=== PATIENT | female | born 1965 | race Caucasian/White ===

== ENCOUNTER 2016-10-19 15:24 | Emergency (ER) | payer BC ==
[2016-10-19 15:43] LABS: Hematocrit 43 % (35-47); Hemoglobin 14.2 g/dl (12.0-16.0); Mean Corpuscular HGB Conc 33 g/dl (31-36); Mean Corpuscular Hemoglobin 28 pg (27-31); Mean Corpuscular Volume 86 fL (80-97); Mean Platelet Volume 8 um3 (7.4-10.4); Red Blood Count 5.07 10^6/ul (4.0-5.4); Red Cell Distribution Width 14 % (10.5-15); White Blood Count 14.1 10^3/ul (3.5-10.8)
[2016-10-19 15:45] LABS: Add Diff/Slide Review? Slide Review Added; Comments Flag Yes
--- NOTE | 2016-10-19 15:49 | RAD ---
INDICATION: Neurologic changes, code garcía. COMPARISON: Comparison is made with a prior MRI of the brain from July 03, [address] of the brain from May 30, 2009. TECHNIQUE: Contiguous axial sections of the brain were obtained from the skull base to the vertex without contrast. FINDINGS: The ventricles, cisterns and sulci are within normal limits. No significant focal abnormality or mass effect is seen. There is no evidence for hemorrhage. No significant focal osseous abnormality is seen. The visualized portion of the paranasal sinuses and mastoid air cells appear clear. The results of this exam were called to the referring clinician at 1544 hours. IMPRESSION: NO EVIDENCE FOR GROSS ACUTE INFARCT, MASS EFFECT OR HEMORRHAGE.
[2016-10-19 15:55] LABS: Albumin 4.6 g/dL (3.2-5.2); Calcium 10.1 mg/dL (8.6-10.3); EGFR African American 83.4 (>60); EGFR Non-African American 64.9 (>60); HDL Cholesterol 39.7 mg/dL; Total Bilirubin 0.3 mg/dL (0.2-1.0); Total Protein 7.6 g/dL (6.4-8.9)
--- NOTE | 2016-10-19 16:12 | RAD ---
INDICATION: Unresponsive. COMPARISON: Comparison is made with a prior chest x-ray study from January 10, 2016. TECHNIQUE: A portable view of the chest was obtained. FINDINGS: Cardiac and mediastinal contours appear to be within normal limits. The lungs are underinflated and clear. No pleural effusion is seen. IMPRESSION: NO EVIDENCE FOR ACUTE FINDING.
[2016-10-19 16:15] LABS: Eosinophils % 1 % (0-6); Neutrophil % 45 % (38-83); RBC Morphology Normal (Normal); Reactive Lymph % 18 % (0-6)
[2016-10-19 16:16] LABS: Add Path Review? YES
[2016-10-19 16:34] LABS: Mono Internal Control QC Line Present
[2016-10-19 16:53] LABS: C Reactive Protein 3.3 mg/L (< 5.00)
[2016-10-19 17:02] LABS: TSH (Thyroid Stimulating Horm) 1.86 mcIU/mL (0.34-5.60)
[2016-10-19 17:17] LABS: Erythrocyte Sed Rate 24 mm/Hr (0-14)
[2016-10-19 18:29] LABS: Benzodiazepine Urine Screen None Detected (None Detect)
[2016-10-19 18:30] LABS: Urine Bilirubin Negative (Negative); Urine Glucose Negative (Negative); Urine Nitrite Negative (Negative)
[2016-10-19 18:37] VITALS: BP 197/119
--- NOTE | 2016-10-19 22:09 | ED ---
Maddy Almanza Matthew, scribed for Juan Miguel Cartwright MD on 10/19/16 at 1604 . Neurological HPI - HPI Summary HPI Summary: A 51 y/o female presents to the ED with AMS since 15:30. Per the son, the administration manager at [facility] stated that patient was having left sided weakness and speech difficulties. They carried the patient into the back room, where she began talking, but still was unable to ambulated. Associated symptoms include headache. The patient denies pain. Currently, the patient will only answer yes or no questions. She is unable to move all extremities. - History of Current Complaint Stated Complaint: POSSIBLE STROKE Hx Obtained From: Patient, Family/Manager Clinical Applications - Son Onset/Duration: Sudden Onset, Started hours ago, Still Present Timing: Constant Onset Severity: Moderate Current Severity: Moderate Neurological Deficit Location: Generalized Character: Paralysis Aggravating: Nothing Alleviating: Nothing Associated Signs and Symptoms: Positive: Headache, AMS - Allergy/Home Medications Allergies/Adverse Reactions: Allergies Allergy/AdvReac Type Severity Reaction Status Date / Time Latex Allergy Blisters Verified 10/19/16 15:55 Aspirin AdvReac Unknown Nausea Verified 10/19/16 15:55 Home Medications: Home Medications Ezetimibe TAB* [Zetia TAB*] 10 mg PO DAILY 10/19/16 [History Confirmed 10/19/16] Nabumetone TAB* [Relafen TAB*] 750 mg PO BID 10/19/16 [History Confirmed ] metFORMIN* [Glucophage 500 MG TAB *] 500 mg PO BID 10/19/16 [History Confirmed 10/19/16] PMH/Surg Hx/FS Hx/Imm Hx Endocrine/Hematology History: Reports: Hx Diabetes - UNMED SINCE 2013 Cardiovascular History: Reports: Hx Hypercholesterolemia Denies: Hx Congestive Heart Failure, Hx Hypertension, Hx Pacemaker/ICD History: Denies: Hx Renal Disease Sensory History: Reports: Hx Contacts or Glasses Denies: Hx Hearing Aid Opthamlomology History: Reports: Hx Contacts or Glasses Neurological History: Reports: Hx Headaches, Hx Migraine - hemiplegic migraines. none in past year Psychiatric History: Reports: Hx Anxiety Denies: Hx Panic Disorder - Cancer History Hx Chemotherapy: No Hx Radiation Therapy: No - Surgical History Surgery Procedure, Year, and Place: X1 (22 YRS AGO). ESOPHAGEAL TIGHTENING VIA SCOPE FOR REFLUX. CERVICAL ABLATION. GIA FUNDOPLICATION. LEFT ARM ORIF Infectious Disease History: No Infectious Disease History: Denies: Traveled Outside the [place] in Last 30 Days - Family History Family History: FHx of breast CA - aunt and grandmother - Social History Alcohol Use: Occasionally Substance Use Type: Reports: None Smoking Status (MU): Current Some Day Smoker Review of Systems Constitutional: Negative Eyes: Negative ENT: Negative Cardiovascular: Negative Respiratory: Negative Gastrointestinal: Negative Genitourinary: Negative Musculoskeletal: Negative Skin: Negative Neurological: Other - AMS; Unable to move upper and lower extremity Positive: Headache Psychological: Normal All Other Systems Reviewed And Are Negative: Yes Physical Exam Triage Information Reviewed: Yes Vital Signs On Initial Exam: Initial Vitals Pulse Ox 91 10/19/16 15:36 Temp Pulse Resp BP Pulse Ox 99.2 F 115 17 189/104 92 10/19/16 15:51 10/19/16 16:10 10/19/16 16:10 10/19/16 16:10 10/19/16 16:10 Vital Signs Reviewed: Yes Appearance: Positive: No Pain Distress Skin: Positive: Warm, Dry Head/Face: Positive: Normal Head/Face Inspection Eyes: Positive: Normal ENT: Positive: Normal ENT inspection Neck: Positive: Supple, Nontender Respiratory/Lung Sounds: Positive: Clear to Auscultation, Breath Sounds Present Cardiovascular: Positive: RRR Abdomen Description: Positive: Nontender, Soft Bowel Sounds: Positive: Present Neurological: Positive: Other - The patient appears unable to move anything including her arms or her legs. She is awake but prefers to keep her eyes shut. She will answer yes or no questions. Diagnostics - Vital Signs Vital Signs Temp Pulse Resp BP Pulse Ox 10/19/16 15:51 99.2 F 106 19 170/93 92 10/19/16 15:46 99.2 F 108 20 189/117 93 10/19/16 15:36 91 - Laboratory Lab Results: Lab Results 10/19/16 10/19/16 10/19/16 Range/Units 15:30 15:30 15:30 WBC 14.1 H (3.5-10.8) 10^3/ul RBC 5.07 (4.0-5.4) 10^6/ul Hgb 14.2 (12.0-16.0) g/dl Hct 43 (35-47) % MCV 86 (80-97) fL MCH 28 (27-31) pg MCHC 33 (31-36) g/dl RDW 14 (10.5-15) % Plt Count 333 (150-450) 10^3/ul MPV 8 (7.4-10.4) um3 Neut % (Auto) 46.0 (38-83) % Lymph % (Auto) 45.6 (25-47) % [place] % (Auto) 6.5 (1-9) % Eos % (Auto) 0.8 (0-6) % Baso % (Auto) 1.1 (0-2) % Absolute Neuts (auto) 6.5 (1.5-7.7) 10^3/ul Absolute Lymphs (auto) 6.4 H (1.0-4.8) 10^3/ul Absolute Monos (auto) 0.9 H (0-0.8) 10^3/ul Absolute Eos (auto) 0.1 (0-0.6) 10^3/ul Absolute Basos (auto) 0.2 (0-0.2) 10^3/ul Absolute Nucleated RBC 0.01 10^3/ul Nucleated RBC % 0.1 INR (Anticoag Therapy) 0.89 (0.89-1.11) APTT 30.3 (26.0-36.3) seconds Sodium 137 (133-145) mmol/L Potassium 4.0 (3.5-5.0) mmol/L Chloride 105 (101-111) mmol/L Carbon Dioxide 23 (22-32) mmol/L Anion Gap 9 (2-11) mmol/L BUN 23 (6-24) mg/dL Creatinine 0.92 (0.51-0.95) mg/dL Est GFR ( Amer) 83.4 (>60) Est GFR (Non-Af Amer) 64.9 (>60) BUN/Creatinine Ratio 25.0 H (8-20) Glucose 112 H (70-100) mg/dL POC Glucose (mg/dL) (74-106) mg/dL Lactic Acid (0.5-2.0) mmol/L Calcium 10.1 (8.6-10.3) mg/dL Total Bilirubin 0.30 (0.2-1.0) mg/dL AST 21 (13-39) U/L ALT 23 (7-52) U/L Alkaline Phosphatase 51 (34-104) U/L Troponin I 0.00 (<0.04) ng/mL Total Protein 7.6 (6.4-8.9) g/dL Albumin 4.6 (3.2-5.2) g/dL Globulin 3.0 (2-4) g/dL Albumin/Globulin Ratio 1.5 (1-3) Triglycerides 328 mg/dL Cholesterol 211 mg/dL LDL Cholesterol 106 mg/dL HDL Cholesterol 39.7 mg/dL Blood Type Antibody Screen 10/19/16 10/19/16 10/19/16 Range/Units 15:30 15:30 15:32 WBC (3.5-10.8) 10^3/ul RBC (4.0-5.4) 10^6/ul Hgb (12.0-16.0) g/dl Hct (35-47) % MCV (80-97) fL MCH (27-31) pg MCHC (31-36) g/dl RDW (10.5-15) % Plt Count (150-450) 10^3/ul MPV (7.4-10.4) um3 Neut % (Auto) (38-83) % Lymph % (Auto) (25-47) % Mohave % (Auto) (1-9) % Eos % (Auto) (0-6) % Baso % (Auto) (0-2) % Absolute Neuts (auto) (1.5-7.7) 10^3/ul Absolute Lymphs (auto) (1.0-4.8) 10^3/ul Absolute Monos (auto) (0-0.8) 10^3/ul Absolute Eos (auto) (0-0.6) 10^3/ul Absolute Basos (auto) (0-0.2) 10^3/ul Absolute Nucleated RBC 10^3/ul Nucleated RBC % INR (Anticoag Therapy) (0.89-1.11) APTT (26.0-36.3) seconds Sodium (133-145) mmol/L Potassium (3.5-5.0) mmol/L Chloride (101-111) mmol/L Carbon Dioxide (22-32) mmol/L Anion Gap (2-11) mmol/L BUN (6-24) mg/dL Creatinine (0.51-0.95) mg/dL Est GFR ( Amer) (>60) Est GFR (Non-Af Amer) (>60) BUN/Creatinine Ratio (8-20) Glucose (70-100) mg/dL POC Glucose (mg/dL) 94 (74-106) mg/dL Lactic Acid 1.0 (0.5-2.0) mmol/L Calcium (8.6-10.3) mg/dL Total Bilirubin (0.2-1.0) mg/dL AST (13-39) U/L ALT (7-52) U/L Alkaline Phosphatase (34-104) U/L Troponin I (<0.04) ng/mL Total Protein (6.4-8.9) g/dL Albumin (3.2-5.2) g/dL Globulin (2-4) g/dL Albumin/Globulin Ratio (1-3) Triglycerides mg/dL Cholesterol mg/dL LDL Cholesterol mg/dL HDL Cholesterol mg/dL Blood Type O Positive Antibody Screen Pending Result Diagrams: 10/19/16 15:30 10/19/16 15:30 Lab Statement: Any lab studies that have been ordered have been reviewed, and results considered in the medical decision making process. - Radiology CXR Xray Interpretation: No Acute Changes - IMPRESSION: NO EVIDENCE FOR ACUTE FINDING. Radiology Interpretation Completed By: Radiologist - CT Brain CT CT Interpretation: No Acute Changes - IMPRESSION: NO EVIDENCE FOR GROSS ACUTE INFARCT, MASS EFFECT OR HEMORRHAGE. CT Interpretation Completed By: Radiologist - EKG 15:27 Cardiac Rate: Tachycardia - 109 bpm EKG Rhythm: Sinus Tachycardia EKG Interpretation: No STEMI Course/Dx - Course Course Of Treatment: Ms. Lopez presented very dramatically with inability to move anything but speaking slowly and answering yes or no questions by vocalizing. A code Lao was called and her W/U was normal. I asked Dr. Pereira to see her and she gradually improved while he was evaluating her. He recommended outpatient F/U. - Diagnoses Provider Diagnoses: Unresponsive episode - Physician Notifications Discussed Care of Patient With: Dr. Pereira (Neurology) at 16:34 -- Notified of patient's history and will consult on the patinet. Discharge - Discharge Plan Condition: Stable Disposition: HOME Referrals: Josh Pereira MD [Medical Doctor] - 1 Week Additional Instructions: Please follow-up with Dr. Pereira next week. The documentation as recorded by the Maddy bai Matthew accurately reflects the service I personally performed and the decisions made by me, Juan Miguel Cartwright MD.
--- NOTE | 2016-10-20 04:34 | CONS ---
CONSULTATION REPORT: DATE OF CONSULT: 10/19/16 - EMERGENCY DEPT PATIENT OF: Dr. Cartwright. HISTORY: This is a 51-year-old right-handed woman, who I was asked to come in to the ER today to evaluate for a number of problems. She was at work this afternoon when she developed complete paralysis of both arms and she was brought in to the ER. She would just be whispering and could not move any of her body. She had a negative CT scan at that point. She then went on to have an abnormal episode, where she was smacking her lips and her head was turning to one side. Dr. Cartwright's description of that is not currently in the chart, apparently it lasted a few minutes and then resolved. Further clinical course is described below under physical exam. PAST MEDICAL HISTORY: She has had a past history significant for, where her says, ever since they were , beginning the day after the wedding , she has had similar episodes of paralysis and possibly abnormal movements that occurred 2 to 3 times a week. The one today occurred was no different than usual other than it occurred while she was at work, so work sent her in. She has had a workup by a neurologist in [place] including MRI scans, CAT scans , EMGs, and apparently this has been normal. Her history goes back even further, she says, perhaps 15 years, but other details she could not describe, but her symptoms were past prior to her marriage. Of note, she also gets muscle spasms. She has diabetes as well. PAST SURGICAL HISTORY: She says past surgeries have included surgery of a broken arm and a . MEDICATIONS: She is on: 1. Metformin 500 b.i.d. 2. Relafen 750 mg b.i.d. 3. Zetia for cholesterol 10 mg daily. 4. Calcium carbonate/vitamin D 1 tab daily. 5. Flexeril 10 mg t.i.d. p.r.n. ALLERGIES: She is allergic to LATEX and ASPIRIN. FAMILY HISTORY: Negative for stroke. SOCIAL HISTORY: She does not smoke, drink, or use drugs. REVIEW OF SYSTEMS: Negative in all 14 spheres other than the HPI. PHYSICAL EXAM: Temperature 99.2, pulse 107, respirations 17, and blood pressure 188/98. She was alert and oriented with normal speech and comprehension. Cranial nerves II through XII were intact. Fundi were benign. Motor exam revealed initially 4/5 collapsing weakness in her right arm. She could barely squeeze my fingers with her left hand, but when I brought my fingers against her, she was quite strong. In the right side, she did not lift her arm against gravity at all, but then I brought it up and she was holding the fingers, she did not drop to the ground and kept it elevated. She could not move the legs at all upon command or wiggle her toes, but when I pushed my hand up against her feet, she had 3-5/5 plantar flexion, but no dorsiflexion. She could although she could not lift her leg off the bed. Within a couple minutes of this exam, she developed a spastic neck and then began moving her right leg to compensate for it by pushing up against the bed with good exertion. I discussed with her that I thought that all of this were stress related and she began moving normally. She was able to get up out of bed and walk. DIAGNOSTIC STUDIES/LAB DATA: Her CT scan was normal. Her labs included white count of 14.1, normal platelets and hematocrit. Sed rate was 24. Normal INR and PTT. CMP was normal other than a glucose of 112, ionized calcium was 4.6. UA was negative. Toxicology was negative. Monos came negative. IMPRESSION: I discussed with Hayden and her family. I thought a lot of neurological complaints were stress related. The family was somewhat accepting of this diagnosis, but some more testing needed to be done and I discussed the possibility these episodes were frequent and arranging in the future video EEG monitoring is a possibility. Once I get her past records from the neurologist and see what has been done and also get more clinical description of her symptoms, but what is described sounds like a possible pseudoseizure. I discussed with the family that one reason to document was to get everybody on the same page these were stress related. She also had some muscle spasms and as an outpatient I can get the prior neurological workup to see if anything further needs to be done. Thank you for sharing her case. [id number]/[facility] #: [id number] KEILY
== END 2016-10-19 19:26 | disposition home or self-care (01) ==
LOC: ED 15:24
DX: R40.4 Transient alteration of awareness (principal); R51 Headache; Z72.0 Tobacco use; R41.82 Altered mental status, unspecified
CPT/HCPCS: 36415; 70450; 71010; 80053; 80061; 80307; 81003; 82330; 83605; 84443; 84484; 85025; 85060; 85610; 85652; 85730; 86140; 86308; 86850; 86900; 86901; 93005; 99285

== ENCOUNTER 2017-04-25 16:06 | Observation (INO) | payer BC ==
[2017-04-25] MEDS ORDERED: NS 0.9% 1000 ML* 1,000 ML IV ONE (16:18)
[2017-04-25 16:47] LABS: Hematocrit 40 % (35-47); Hemoglobin 13.2 g/dl (12.0-16.0); Mean Corpuscular HGB Conc 33 g/dl (31-36); Mean Corpuscular Hemoglobin 29 pg (27-31); Mean Corpuscular Volume 87 fL (80-97); Mean Platelet Volume 8 um3 (7.4-10.4); Red Blood Count 4.62 10^6/ul (4.0-5.4); Red Cell Distribution Width 14 % (10.5-15); White Blood Count 12.7 10^3/ul (3.5-10.8)
--- NOTE | 2017-04-25 16:47 | RAD ---
Indication: Code garcía. Neurological changes. Comparison: October 19, 2016 Technique: Noncontrast CT vertex of skull through foramen magnum. Report: Mild prominence of the frontal lobe sulci without change. Unremarkable ventricles and basal cisterns. Negative for garcía matter white matter obscuration, intra or extra-axial hemorrhage, or mass effect. Unremarkable partially visualized orbital contents. No suspicious calvarial or skull base lesion evident. Clear partially visualized paranasal sinuses and mastoid air spaces. Unremarkable scalp. IMPRESSION: No acute intracranial process evident. Stable exam compared with October 19, 2016. Results discussed with Dr. Walker 04/25/2017 4:44 PM EST
[2017-04-25 17:03] LABS: BUN/Creatinine Ratio 19.1 (8-20); Calcium 9.7 mg/dL (8.6-10.3); EGFR African American 81.1 (>60); HDL Cholesterol 42.3 mg/dL; Potassium 3.6 mmol/L (3.5-5.0); Total Bilirubin 0.3 mg/dL (0.2-1.0); Total Protein 7.7 g/dL (6.4-8.9)
[2017-04-25 17:07] LABS: Troponin I 0.04 ng/mL (<0.04)
--- NOTE | 2017-04-25 17:16 | RAD ---
Indication: Neurological changes, code Conley. Chest tightness. Comparison: October 19, 2016 Technique: Upright AP 1645 hours Report: Clear lungs and pleural spaces. Negative for pneumothorax. The heart, pulmonary vasculature, and mediastinal contours are unremarkable. Unremarkable osseous structures and soft tissue contours. IMPRESSION: No evidence for acute intrathoracic disease.
[2017-04-25 17:42] LABS: Urine Bacteria Absent (Absent); Urine Bilirubin Negative (Negative); Urine Glucose Negative (Negative); Urine Nitrite Negative (Negative)
[2017-04-25 18:22] LABS: Albumin 4.8 g/dL (3.2-5.2); Globulin 2.9 g/dL (2-4)
--- NOTE | 2017-04-25 19:16 | ED ---
Eulalio Almanza Gabriel, scribed for Carlos Walker MD on 04/25/17 at 1622 . Neurological HPI - HPI Summary HPI Summary: This patient is a 52 year old F BIBA to [facility] with a chief complaint of a possible CVA. EMS stated the patients onset of symptoms began at 8:[address] work this is when she began having blurred vision. Around 11:00 she began to have left sided weakness and numbness. Currently she is unable to lift her left arm and the left side of her face is drooping. EMS reports that she was able to ambulate upon their arrival. - History of Current Complaint Chief Complaint: EDNeurologicalDeficit Stated Complaint: POSSIBLE STROKE Time Seen by Provider: 04/25/17 16:10 Hx Obtained From: Patient, EMS - most dicated by EMS Onset/Duration: Sudden Onset - 800 this moring, Still Present Timing: Constant Onset Severity: Mild Current Severity: Severe Neurological Deficit Location: Facial, LUE, LLE - Allergy/Home Medications Allergies/Adverse Reactions: Allergies Allergy/AdvReac Type Severity Reaction Status Date / Time Latex Allergy Blisters Verified 10/19/16 15:55 Aspirin AdvReac Unknown Nausea Verified 10/19/16 15:55 Home Medications: Home Medications Amitriptyline TAB* [Elavil TAB*] 25 mg PO BEDTIME 04/25/17 [History Confirmed ] Cholecalciferol [Vitamin D3 Super Strength] 2,000 unit PO QAM 04/25/17 [History Confirmed 04/25/17] Clopidogrel TAB* [Plavix TAB*] 75 mg PO QAM 04/25/17 [History Confirmed 04/25/17 ] Cyanocobalamin TAB* [Vitamin B12 TAB*] 5,000 mcg PO QAM 04/25/17 [History Confirmed 04/25/17] Cyclobenzaprine TAB* [Flexeril TAB*] 10 mg PO BEDTIME PRN 04/25/17 [History Confirmed 04/25/17] Docosahexaenoic Acid [ Dha] 200 mg PO QAM 04/25/17 [History Confirmed ] Fenofibrate(NF) [Tricor(NF)] 145 mg PO BEDTIME 04/25/17 [History Confirmed 04/25] Gabapentin CAP(*) [Neurontin 300 CAP(*)] 300 mg PO BID 04/25/17 [History Confirmed 04/25/17] Lisinopril TAB* [Prinivil TAB*] 5 mg PO BEDTIME 04/25/17 [History Confirmed ] Thiamine HCl [Vitamin B-1] 250 mg PO QAM 04/25/17 [History Confirmed 04/25/17] Turmeric (Curcuma Longa) [Turmeric] 500 mg PO QAM 04/25/17 [History Confirmed ] PMH/Surg Hx/FS Hx/Imm Hx Previously Healthy: No Endocrine/Hematology History: Reports: Hx Diabetes - UNMED SINCE 2013 Cardiovascular History: Reports: Hx Hypercholesterolemia, Hx Hypertension Denies: Hx Congestive Heart Failure, Hx Pacemaker/ICD History: Denies: Hx Renal Disease Sensory History: Reports: Hx Contacts or Glasses Denies: Hx Hearing Aid Opthamlomology History: Reports: Hx Contacts or Glasses Neurological History: Reports: Hx Headaches, Hx Migraine - hemiplegic migraines. none in past year Psychiatric History: Reports: Hx Anxiety, Hx Depression Denies: Hx Panic Disorder - Cancer History Hx Chemotherapy: No Hx Radiation Therapy: No - Surgical History Surgery Procedure, Year, and Place: X1 (22 YRS AGO). ESOPHAGEAL TIGHTENING VIA SCOPE FOR REFLUX. CERVICAL ABLATION. GIA FUNDOPLICATION. LEFT ARM ORIF - Family History Family History: FHx of breast CA - aunt and grandmother - Social History Alcohol Use: Occasionally Substance Use Type: Reports: None Smoking Status (MU): Current Some Day Smoker Review of Systems Positive: Blurred Vision Neurological: Other - facial droop, unable to move left arm Positive: Weakness, Numbness All Other Systems Reviewed And Are Negative: Yes Physical Exam Triage Information Reviewed: Yes Vital Signs On Initial Exam: Initial Vitals BP 156/100 04/25/17 16:18 Vital Signs Reviewed: Yes Appearance: Positive: Ill-Appearing - anxious, fluttering her eyes, and a little tearful Skin: Positive: Warm, Skin Color Reflects Adequate Perfusion Head/Face: Positive: Normal Head/Face Inspection Eyes: Positive: EOMI Respiratory/Lung Sounds: Positive: Clear to Auscultation, Breath Sounds Present Cardiovascular: Positive: RRR. Negative: Murmur Abdomen Description: Positive: Nontender Musculoskeletal: Negative: Edema Left, Edema Right - Exam: She has no effort against gravity of left arm and leg. She has 5/5 strength right side of body. She is not able to speak except to intermittently utter a word. She is able to say 11 am as onset of her symptoms becoming continuous. Psychiatric: Positive: Anxious - tearful Diagnostics - Vital Signs Vital Signs Pulse Resp BP Pulse Ox 04/25/17 17:00 18 149/89 04/25/17 16:59 96 04/25/17 16:30 160/90 04/25/17 16:23 104 15 98 04/25/17 16:20 14 04/25/17 16:18 156/100 - Laboratory Lab Results: Lab Results 04/25/17 04/25/17 04/25/17 Range/Units 16:37 16:37 16:37 WBC 12.7 H (3.5-10.8) 10^3/ul RBC 4.62 (4.0-5.4) 10^6/ul Hgb 13.2 (12.0-16.0) g/dl Hct 40 (35-47) % MCV 87 (80-97) fL MCH 29 (27-31) pg MCHC 33 (31-36) g/dl RDW 14 (10.5-15) % Plt Count 409 (150-450) 10^3/ul MPV 8 (7.4-10.4) um3 Neut % (Auto) 57.1 (38-83) % Lymph % (Auto) 36.0 (25-47) % Moore % (Auto) 5.2 (1-9) % Eos % (Auto) 0.9 (0-6) % Baso % (Auto) 0.8 (0-2) % Absolute Neuts (auto) 7.3 (1.5-7.7) 10^3/ul Absolute Lymphs (auto) 4.6 (1.0-4.8) 10^3/ul Absolute Monos (auto) 0.7 (0-0.8) 10^3/ul Absolute Eos (auto) 0.1 (0-0.6) 10^3/ul Absolute Basos (auto) 0.1 (0-0.2) 10^3/ul Absolute Nucleated RBC 0 10^3/ul Nucleated RBC % 0 INR (Anticoag Therapy) 0.89 (0.89-1.11) APTT 31.2 (26.0-36.3) seconds Sodium 139 (133-145) mmol/L Potassium 3.6 (3.5-5.0) mmol/L Chloride 107 (101-111) mmol/L Carbon Dioxide 24 (22-32) mmol/L Anion Gap 8 (2-11) mmol/L BUN 18 (6-24) mg/dL Creatinine 0.94 (0.51-0.95) mg/dL Est GFR ( Amer) 81.1 (>60) Est GFR (Non-Af Amer) 63.0 (>60) BUN/Creatinine Ratio 19.1 (8-20) Glucose 120 H (70-100) mg/dL POC Glucose (mg/dL) (70-100) mg/dL Lactic Acid (0.5-2.0) mmol/L Calcium 9.7 (8.6-10.3) mg/dL Total Bilirubin 0.30 (0.2-1.0) mg/dL AST 22 (13-39) U/L ALT 27 (7-52) U/L Alkaline Phosphatase 53 (34-104) U/L Troponin I 0.04 H* (<0.04) ng/mL Total Protein 7.7 (6.4-8.9) g/dL Albumin Pending Globulin Pending Albumin/Globulin Ratio Pending Triglycerides 293 mg/dL Cholesterol 255 mg/dL LDL Cholesterol 154 mg/dL HDL Cholesterol 42.3 mg/dL Blood Type Antibody Screen 04/25/17 04/25/17 04/25/17 Range/Units 16:37 16:37 17:03 WBC (3.5-10.8) 10^3/ul RBC (4.0-5.4) 10^6/ul Hgb (12.0-16.0) g/dl Hct (35-47) % MCV (80-97) fL MCH (27-31) pg MCHC (31-36) g/dl RDW (10.5-15) % Plt Count (150-450) 10^3/ul MPV (7.4-10.4) um3 Neut % (Auto) (38-83) % Lymph % (Auto) (25-47) % Moore % (Auto) (1-9) % Eos % (Auto) (0-6) % Baso % (Auto) (0-2) % Absolute Neuts (auto) (1.5-7.7) 10^3/ul Absolute Lymphs (auto) (1.0-4.8) 10^3/ul Absolute Monos (auto) (0-0.8) 10^3/ul Absolute Eos (auto) (0-0.6) 10^3/ul Absolute Basos (auto) (0-0.2) 10^3/ul Absolute Nucleated RBC 10^3/ul Nucleated RBC % INR (Anticoag Therapy) (0.89-1.11) APTT (26.0-36.3) seconds Sodium (133-145) mmol/L Potassium (3.5-5.0) mmol/L Chloride (101-111) mmol/L Carbon Dioxide (22-32) mmol/L Anion Gap (2-11) mmol/L BUN (6-24) mg/dL Creatinine (0.51-0.95) mg/dL Est GFR ( Amer) (>60) Est GFR (Non-Af Amer) (>60) BUN/Creatinine Ratio (8-20) Glucose (70-100) mg/dL POC Glucose (mg/dL) 119 H (70-100) mg/dL Lactic Acid 1.0 (0.5-2.0) mmol/L Calcium (8.6-10.3) mg/dL Total Bilirubin (0.2-1.0) mg/dL AST (13-39) U/L ALT (7-52) U/L Alkaline Phosphatase (34-104) U/L Troponin I (<0.04) ng/mL Total Protein (6.4-8.9) g/dL Albumin Globulin Albumin/Globulin Ratio Triglycerides mg/dL Cholesterol mg/dL LDL Cholesterol mg/dL HDL Cholesterol mg/dL Blood Type O Positive Antibody Screen Pending Result Diagrams: 04/25/17 16:37 04/25/17 16:37 Lab Statement: Any lab studies that have been ordered have been reviewed, and results considered in the medical decision making process. - Radiology CXR Radiology Interpretation Completed By: Radiologist - No evidence for acute intrathoracic disease. ED physician has reviewed this radiology report and agrees. - CT CT Brain CT Interpretation Completed By: Radiologist - No acute intracranial process evident. Stable exam compared with October 19, 2016. Results discussed with Dr. Walker 04/25/2017 4:44 PM EST. ED physician has reviewed this radiology report and agrees. - EKG 16:50 Cardiac Rate: NL EKG Rhythm: Sinus Rhythm - 87 BPM EKG Interpretation: Normal MS, QRS, QT, No STEMI NIH Scale - NIH Scale Level of Consciousness: Alert/Keenly Responsive - nih total 7 Ask Patient the Month and His/Her Age: Both Correct Ask Pt to Open/Close Eyes and Strap Setter/Release Non-Paretic Hand: Both Correctly Best Gaze (Only Horizontal Eye Movement): Normal Visual Field Testing: Complete Hemianopia Motor Function - Right Arm: No Drift-Holds 10 Seconds Motor Function - Left Arm: Effort Against Worley Motor Function - Right Leg: No Drift-Holds 10 Seconds Motor Function - Left Leg: Effort Against Worley Sensory (Use Pinprick to Test Arms/Legs/Trunk/Face): Pinprick Less on Affected Best Language (Describe Picture, Name Items): No Aphasia - 1645 Extinction and Inattention: No Abnormality NIH Stroke Scale Comment: stroke scale 7 Re-Evaluation - Re-Evaluation First Eval Re-Evaluation Time: 17:22 Change: Improved Comment: the patient is now out of bed and attempting to ambulate with assitance with both legs to the restroom. Course/Dx - Course Course Of Treatment: 52 yr old with onset of CP this morning, blur vision, and then left side weakness around 11am per patient. Her CT is neg. Dr Stokes consulted and feels the patient not candidate for TPA, and that this is more conversion issue. her troponin is up. EKG OK. OBV to hospitalist. - Diagnoses Provider Diagnoses: Chest pain, Hemiplegia, Anxiety During the Visit The Following Alert/Code Occurred: Code Lao - 16:22 - Critical Care Time Critical Care Time: 30-74 min Discharge - Discharge Plan Condition: Good Disposition: ADMITTED TO [facility] Referrals: Brian Egan [Primary Care Provider] - The documentation as recorded by the Eulalio bai Gabriel accurately reflects the service I personally performed and the decisions made by me, Carlos Walker MD.
[2017-04-25] MEDS ORDERED: Cyclobenzaprine TAB* 10 MG PO PRN (19:44)
[2017-04-25] MEDS ORDERED: Amitriptyline TAB* 25 MG PO SCH (21:00)
[2017-04-25] MEDS ORDERED: Lisinopril TAB* 5 MG PO SCH (21:00)
[2017-04-25] MEDS ORDERED: Fenofibrate(NF) 145 MG TAB PO SCH (21:00)
[2017-04-25] MEDS ORDERED: Nabumetone TAB* 500 MG PO SCH (21:00)
[2017-04-25] MEDS ORDERED: Ondansetron INJ* 2 MG/ML VIAL IV PRN (22:52)
[2017-04-25] MEDS: metFORMIN* 500 MG TAB PO SCH (23:10)
[2017-04-25] MEDS: Gabapentin CAP(*) 300 MG PO SCH (23:12)
[2017-04-25] MEDS: Morphine INJ* 2 MG/ML 1 ML SYRINGE (TWO MG - NEW SYRINGE VERSION) IV PRN (23:25)
[2017-04-25] MEDS: amLODIPine TAB* 5 MG PO SCH (23:27)
--- NOTE | 2017-04-26 01:26 | CONS ---
CC: Mr. Davison NEUROLOGY CONSULTATION: DATE OF CONSULTATION: 04/25/17 LOCATION: She is in the emergency room. REFERRING PROVIDER: Dr. Walker. CHIEF COMPLAINT: Pain, numbness, weakness. HISTORY OF PRESENT ILLNESS: Hayden Lopez is a 52-year-old right-handed woman who reports that she did not feel well last night and hardly slept. States because of diffuse pain that she has had for years. She has muscle pain and burning throughout her whole body, which started at least a couple of years ago. She was at her second job today at [employer] and an EMT came in that she knew and asked them to check her blood pressure because she did not feel good. Somewhere in that time she noted that her left side was weak, she thinks perhaps it was 10 or 11 in the morning, but she is not sure. She presented to the emergency room and complained of numbness and weakness of her left side. A code ricky was called. I evaluated her as soon as she arrived from the CAT scan into her room. At the time of my examination, she complains of diffuse body pain and burning. She states she has had it for years. States it is from her neck down, but sometimes the back of her head. She states that her left side is weak and that she has had it before, but it is weaker than it usually is. She is not sure exactly when it started and it seems to go back quite a while, it is in a fluctuating fashion. She has not had any falls today. She has not had a headache today, but she feels little nauseous currently. She has not noticed any change in her vision initially, but at the end of evaluation she asked why she always has double vision. Her past medical history is notable for conversion disorder, felt by Dr. Pereira when she presented to the emergency room with bilateral weakness of her arms on 10/19/16. According to that record, she has had episodic paralysis of apparently left side or sometimes both sides. She was evaluated by a neurologist in somewhere near [place] and said that a specific diagnosis was not found. She was evaluated more recently by Dr. Bernard Castaneda in our office and he felt she had diffuse giveaway weakness. She also reports she has had "migraines" diagnosis of "hemiplegic migraines" since she was 19. Since she would have episodes of loss of consciousness and she forgets if one side was weak or not. Her past medical history is notable for diagnosis of fibromyalgia, depression, hypercholesterolemia, diabetes. MEDICATIONS: As an outpatient consist of: 1. Metformin 500 mg b.i.d. 2. Zetia 10 mg p.o. daily. 3. Cyclobenzaprine 10 mg p.o. t.i.d. p.r.n. back pain. 4. Nabumetone 750 mg p.o. b.i.d. 5. Vitamin D3. 6. Potassium supplementation. ALLERGIES: She is said to be allergic to ASPIRIN, which upsets her stomach and also LATEX. SOCIAL HISTORY: She is an ex-smoker. She does not drink alcohol. REVIEW OF SYSTEMS: The patient is notable for episodic headaches, poor sleep, chronic fatigue, intermittent nausea and gastrointestinal pain, stable weight. She works 2 jobs. PHYSICAL EXAMINATION: On examination, she is a tearful, overweight woman, lying in the emergency room stretcher. Temperature not recorded yet, blood pressure 150/90, heart rate about 100 and regular and in sinus on the monitor, respiratory rate is 18, oxygen saturation is 96% on room air. Heart is in a regular rate and rhythm. I do not hear any murmurs. Neck is supple. Oral mucosa is moist and atraumatic. There are no cervical bruits. Neurological Exam: Pupils react equally from 4 down to 2 mm. Facial musculature is symmetric. Facial sensation is reported as absent to light touch on the left side. Corneal reflexes are symmetric. Palate and tongue appear normal and speech is clear. Tongue protrudes in the midline. Motor exam reveals diffuse decreased muscle tone. She has normal strength in the right arm and leg proximally and distally. On attempting to move the left arm and leg, she says "I cannot" and with encouragement is able to raise the left arm off the bed and hold it few inches up for several minutes and the left leg in the same fashion. When testing heel pressure on either side, she generates downward heel pressure with the left leg when raising the right leg and does generate downward pressure with the right heel as well. All the muscles are immanuel on the left leg when she attempts to raise it. Sensory exam is reported as diminished pin discrimination on the right side relative to the left and absent light touch in the right arm and leg relative to the left. Reflexes are hypoactive but symmetric to the knees, absent at the ankles, plantars are flexor bilaterally. Finger taps are normal on the right and she moves her fingers weakly on the left when attempting finger taps. My NIH score comes out at 7. She is alert and tearful and answers questions appropriately, but is a poor historian with poor recollection of her past medical history. Language is fluent. DIAGNOSTIC STUDIES/LABORATORY DATA: Normal for CT scan of the brain, interpreted as normal. I reviewed and I agree. EKG is unremarkable. Laboratory studies notable for CBC with a white blood cell count of 12.7 without a shift, INR normal at 0.89 and PTT at 31.2. Chemistry profile notable for nonfasting glucose of 120. Troponin is borderline at 0.04. Cholesterol is 255, LDL 154. Electrolytes normal. IMPRESSION: My impression is that of conversion disorder. Her exam looks out very functional and really does not make anatomical sense with visual field loss on the right and sensation almost absent on the left side with normal corneal reflexes and normal speech. Also, it appears that she has had similar episodes if not identical episodes in the past. I broached the concept of subconscious psychological conflict producing physical symptoms including blindness, hemiplegia, and paraplegia to the patient. She says tearfully that she does not feel depressed or anxious. Discussed my impression with Dr. Walker who is looking at the borderline troponin and suggested considering a psychiatry consultation if her symptoms do not resolve in short order. [id number]/[facility] #: [id number] RANDYD
--- NOTE | 2017-04-26 03:10 | HP ---
HISTORY AND PHYSICAL: DATE OF ADMISSION: 04/25/17 ADMITTING PROVIDER: Steven Tipton MD. CHIEF COMPLAINT: Left sided weakness and pain; left sided chest pain and migraine headache. PAST MEDICAL HISTORY: Diabetes mellitus, hemiplegic migraines, neuropathic pains, current smoker, obesity, hyperlipidemia, concern for conversion disorder. HISTORY OF PRESENT ILLNESS: Hayden Lopez is a 52-year-old female with PMH as above who has seen multiple specialist as an outpatient, given her history of neuropathic pain, intermittent hemiparesis, was last evaluated by Dr. Pereira in our system on 10/19/16 and there was concern for conversation disorder at that time. The patient has chronic pains throughout her body, such that she is only able to lift a dollar bill ever since October of this year. She gets feelings of cold in her feet that turn into burning sensations. She has followed up with neurology in [place], worked up for fibromyalgia and rheumatoid arthritis locally (Dr. Abbott). Her PCP is Brian Davison, who she last saw 3 weeks ago, has been started on multiple medications to address her neuropathic pains and other weakness like sensations. 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 They were walking outside, when she suddenly started feeling like her left leg was becoming numb and had difficulty walking and then progressive pain up the left leg and left arm and the EMT was able to transfer her to [facility] emergency room for evaluation where a code ricky was called per the report of emergency room doctor , Dr. Walker. Dr. Stokes saw the patient in the ED and was suspecting not CVA but more likely conversion disorder reaction; however, the patient did have an elevated troponin at 0.04, had sensations of chest pressure that goes into her left chest and into her left arm, shoulder, and left jaw pain and known to have a family history positive for coronary artery disease, hyperlipidemia and current smoker as mentioned. She has been admitted for ACS rule out. Per her history is that she usually stumbles a lot, complained of double vision. She states that the chest pain on the left side is worse with lying on it and is somewhat a burning in sensation. The left extremities are both numb and tingling with cold and burning sensations bilaterally and additional weakness and some gait instability. MEDICATIONS: Her medications as an outpatient include: 1. Gabapentin 300 mg p.o. b.i.d. 2. Thiamine 250 mg p.o. q. a.m. 3. Clopidogrel 75 mg q. a.m. 4. Zetia 10 mg p.o. q. a.m. 5. Amitriptyline 25 mg q.h.s. 6. Turmeric 500 mg p.o. q. a.m. 7. Flexeril 10 mg p.o. q.h.s. 8. Vitamin B12 5000 mcg p.o. q. a.m. 9. Cholecalciferol 2000 units p.o. q.a.m. 10. Nabumetone 750 mg p.o. b.i.d. 11. Fenofibrate 145 mg p.o. q.h.s. 12. Metformin 500 mg p.o. b.i.d. 13. Lisinopril 5 mg p.o. at bedtime. ALLERGIES: LATEX and ASPIRIN causing stomach upset. FAMILY HISTORY: Reports diabetes mellitus in her father, sister, grandmother and coronary artery disease in her father, paternal uncle and maternal uncle. 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 She lives with her . Her desired medical surrogate is her sister, Gertrudis Heard. Second would be her mother, Keira Germain. She is current smoker, half pack to a third pack of a day who has been smoking for 30 years less than a pack on average a day. Denies alcohol use or other drug use. REVIEW OF SYSTEMS: Negative except for HPI and 14 points. PHYSICAL EXAMINATION GENERAL APPEARANCE: The patient initially observed browsing on her phone, in no acute distress. She then became tearful on initial examination. VITAL SIGNS: Heart rate between 102 and 98, respiratory rate between 16 and 22 , satting at mid 90s on room air, blood pressure 148/88, temperature 98.8. HEENT: Normocephalic, atraumatic. Pupils are equal, round, and reactive. No scleral icterus. NECK: No cervical lymphadenopathy. PULMONARY: Clear to auscultation. No wheezing, rales or rhonchi. CARDIOVASCULAR: Regular rate and rhythm. No murmurs, rubs, or gallops. ABDOMEN: Soft, nontender, nondistended. No peritoneal signs. No rebound or guarding. No Kurtz's sign. EXTREMITIES: Warm, well perfused. No peripheral edema. NEUROLOGIC EXAM: The patient is able to support self up in bed with the left arm, but has 4-/5 russet repairer strength in left, 5/5 on the right. The patient 3- in hip flexion on the left, 5/5 on the right. Sensation intact and hypersensitive on the left foot. Cranial nerves grossly intact except for subjective numbness in the left face, V3 and V1 distributions. She also tested some lip numbness that is newish. LABORATORY EVALUATION: White count 12.7, hemoglobin 13.2, hematocrit 40, platelets 409. Sodium 139, potassium 3.6, chloride 107, carbon dioxide 24, BUN 18, creatinine 0.94, lactic acid 1.0. Troponin 0.04. LDL 154, HDL 42. Urinalysis, 1+ blood. Radiology: Chest x-ray with no evidence of acute intrathoracic disease. Brain CT: No acute intracranial process evident, stable compared to 10/19/16. ECG with some poor R-wave progression. Normal sinus rhythm. Heart rate 87. Q- wave in III, QTc 439, DC 149, QRS 86. ASSESSMENT AND PLAN: The patient is a 52-year-old female with past medical history concerning for conversion disorder, hyperlipidemia, current smoker. Family history is significant for cardiac disease presenting with left sided numbness, tingling, and left sided chest burning pain with intermediately positive troponin. She will be admitted to observation status for ACS rule out with troponins q. 4 hours x2, telemetry monitoring. Already evaluated by chuy Min rule out, not considered a candidate for tPA or suspicion for actual neurologic events. CT head was without intracranial process. For now we will continue her Plavix, Zetia, TriCor, gabapentin, and lisinopril. We will hold her metformin while in the hospital and give sliding scale insulin and point of care testing q.a.c. q.h.s. Her last A1c was 8.2%. Will continue her amitriptyline and nabumetone for chronic pains and headaches. She desires to be a DNR/DNI, but does not have MOLST paper with her to allow us fill that out. Her medical surrogate is Gertrudis Heard, her sister. Of note, she may leave against medical advice since she is concerned about the bills associated with hospital observation status or admission. [id number]/[facility] #: [id number] KEILY
[2017-04-26] MEDS: Morphine INJ* 2 MG/ML 1 ML SYRINGE (TWO MG - NEW SYRINGE VERSION) IV PRN (06:03)
[2017-04-26 06:44] LABS: Hematocrit 39 % (35-47); Hemoglobin 13.1 g/dl (12.0-16.0); Mean Corpuscular HGB Conc 34 g/dl (31-36); Mean Corpuscular Hemoglobin 29 pg (27-31); Mean Corpuscular Volume 86 fL (80-97); Mean Platelet Volume 8 um3 (7.4-10.4); Red Blood Count 4.57 10^6/ul (4.0-5.4); Red Cell Distribution Width 14 % (10.5-15); White Blood Count 10.5 10^3/ul (3.5-10.8)
[2017-04-26 07:03] LABS: BUN/Creatinine Ratio 15.2 (8-20); Calcium 9.6 mg/dL (8.6-10.3); EGFR African American 83.1 (>60); EGFR Non-African American 64.6 (>60)
[2017-04-26] MEDS: metFORMIN* 500 MG TAB PO SCH (08:35)
[2017-04-26] MEDS: Gabapentin CAP(*) 300 MG PO SCH (08:35)
[2017-04-26] MEDS: amLODIPine TAB* 5 MG PO SCH (08:35)
[2017-04-26 08:39] VITALS: BP 149/77
[2017-04-26] MEDS ORDERED: Cyanocobalamin TAB* 500 MCG PO SCH (09:00)
[2017-04-26] MEDS ORDERED: Clopidogrel TAB* 75 MG PO SCH (09:00)
[2017-04-26] MEDS ORDERED: Ezetimibe TAB* 10 MG PO SCH (09:00)
--- NOTE | 2017-04-27 06:31 | DS ---
DISCHARGE SUMMARY: DATE OF ADMISSION: 04/25/17. DATE OF DISCHARGE: 04/26/17. ADMITTING PHYSICIAN: Steven Tipton MD. ATTENDING PHYSICIAN: Steven Tipton MD. CHIEF COMPLIANT: Left sided weakness, left sided chest pain, migraine headache. PAST MEDICAL HISTORY: Diabetes mellitus, migraines, neuropathic pains, current smoker, obesity, hyperlipidemia, hypertriglyceridemia, concern for conversion disorder. PRINCIPAL DIAGNOSES: Conversion disorder; ACS. rule out. HISTORY OF PRESENT ILLNESS AND HOSPITAL COURSE: Hayden Lopez is a 52-year-old female with PMH as above, seen multiple specialists on outpatient for her neuropathic pain, intermittent weakness, fibromyalgia? and other neurologic symptoms without a clear diagnosis for concern of conversion disorder per Dr. Pereira's evaluation of 10/19/16. She has had weakness in her left side since October of this year and chronic pain throughout her body. She gets burning sensations, worse on the left side, has followed up with neurologist in [place] and likely with Rheumatology locally, although cannot recall, the name. Her PCP is Brian Davison, last saw 3 weeks ago and has been started on gabapentin 300 mg b.i.d. for neuropathic pain to take prior to admission. 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 They were then walking outside together and she said that her left leg started become numb and due to difficulty walking, she presents to the emergency room for further evaluation of focal neurological deficits. Tho garcía was called in the ED, Dr. Stokes evaluated the patient, NIH stroke score was deemed as 7, but anatomic distribution did not make sense and given history of similar episodes in the past and concern for conversion disorder, patient was not recommended for TPA or other imaging modalities. Of note, she did get a CT of the head without contrast, which showed no acute intracranial process evident. Her troponin was intermittently elevated at 0.04. She had been complaining of some chest burning , chest pressure, worse with lying on her side and given her cardiac risk factors of current smoker, hyperlipidemia uncontrolled despite many years of statin therapy and family history, she was admitted for ACS rule out. Her troponin down trended overnight to 0.03, her EKG was without ischemic changes, and telemetry showed no arrhythmias. She will be discharged with followup with Brian Davison for consideration for further chronic evaluation and risk factor modification, which include smoking cessation, which was discussed, but she is not interested at this time given the financial constrains, exercise and weight reduction. DISCHARGE MEDICATIONS: Include: 1. Amitriptyline 25 mg p.o. q.h.s. 2. Colace. 3. Calciferol 3000 units p.o. q.a.m. 4. Clopidogrel 75 mg p.o. q.a.m. 5. Vitamin B12 tablet 5000 mcg p.o. q.a.m. 6. Flexeril 10 mg p.o. at bed time p.r.n. 7. Docosahexaenoic acid 200 mg p.o. q.a.m. 8. Zetia 10 mg p.o. q.a.m. 9. Tricor 145 mg p.o. at bedtime. 10. Gabapentin 300 mg p.o. b.i.d., (recently started). 11. Lisinopril 5 mg p.o. at bedtime. 12. Metformin p.o., b.i.d. 13. Nabumetone 750 mg p.o. b.i.d. 14. Thiamine 250 mg p.o. q.a.m. 15. Turmeric 500 mg p.o. q.a.m. DISCHARGE DIET: Carbohydrate consistent, heart healthy, unchanged. ACTIVITY LEVEL: No restrictions, unchanged. FOLLOWUP: Follow up with Brian Davison next week for discussion of risk factor modifications and continue neuropathic symptoms, consideration for reestablished care with [facility] for concern for conversion disorder or other psychiatric condition. Consideration for outpatient stress tests with Cardiology, especially if chest pain returns. TIME SPENT: On discharge, 35 minutes. [id number]/[facility] #: [id number] KEILY
== END 2017-04-26 11:16 | disposition home or self-care (01) ==
LOC: ED 16:06 → MEDTELE 20:00
PROVIDERS: ADMIT Internal Medicine; ATTEND Internal Medicine
DX: R07.9 Chest pain, unspecified (principal); G43.909 Migraine, unspecified, not intractable, without status migrainosus; R53.1 Weakness; F44.4 Conversion disorder with motor symptom or deficit; E11.9 Type 2 diabetes mellitus without complications; E66.9 Obesity, unspecified; E78.5 Hyperlipidemia, unspecified; E78.1 Pure hyperglyceridemia; Z79.899 Other long term (current) drug therapy; F17.210 Nicotine dependence, cigarettes, uncomplicated
CPT/HCPCS: 36415; 70450; 71010; 80048; 80053; 80061; 81003; 81015; 83605; 84484; 85025; 85610; 85730; 86850; 86900; 86901; 93005; 96361; 96374; 96375; 96376; 99291; 99406; A9270-GY; G0378; J2270; J2405

== ENCOUNTER 2017-07-23 11:37 | Emergency (ER) | payer BC ==
[2017-07-23 12:28] LABS: ABS Basophils 0.1 10^3/ul (0-0.2); ABS Eosinophils 0.1 10^3/ul (0-0.6); ABS Lymphocytes 4.4 10^3/ul (1.0-4.8); ABS Monocytes 0.5 10^3/ul (0-0.8); ABS Neutrophils 4.6 10^3/ul (1.5-7.7); ABS Nucleated RBC 0 10^3/ul; Eosinophil % 1.1 % (0-6); Hematocrit 41 % (35-47); Hemoglobin 13.8 g/dl (12.0-16.0); Lymphocyte % 45.4 % (25-47); Mean Corpuscular HGB Conc 34 g/dl (31-36); Mean Corpuscular Hemoglobin 29 pg (27-31); Mean Corpuscular Volume 85 fL (80-97); Mean Platelet Volume 8 um3 (7.4-10.4); Nucleated Red Blood Cells % 0; Platelet Count 372 10^3/ul (150-450); Red Blood Count 4.83 10^6/ul (4.0-5.4); Red Cell Distribution Width 14 % (10.5-15); White Blood Count 9.7 10^3/ul (3.5-10.8)
[2017-07-23 12:42] LABS: INR 0.85 (0.77-1.02)
[2017-07-23 12:52] LABS: EGFR Non-African American 80.6 (>60)
--- NOTE | 2017-07-23 13:12 | RAD ---
HISTORY: Chest pain COMPARISONS: April 25, 2017 VIEWS: 4: Frontal dual-energy and lateral views of the chest. FINDINGS: CARDIOMEDIASTINAL SILHOUETTE: The cardiomediastinal silhouette is normal. HELIO: The helio are normal. PLEURA: The costophrenic angles are sharp. No pleural abnormalities are noted. LUNG PARENCHYMA: The lungs are clear. ABDOMEN: The upper abdomen is clear. There is no subphrenic gas. BONES AND SOFT TISSUES: No bone or soft tissue abnormalities are noted. OTHER: None. IMPRESSION: NO ACTIVE CARDIOPULMONARY DISEASE.
[2017-07-23] MEDS ORDERED: Ketorolac INJ* 30 MG/ML 1 ML VIAL IV ONE (14:30)
[2017-07-23 16:08] VITALS: BP 87/48
--- NOTE | 2017-07-24 16:34 | ED ---
Eulalio Almanza Gabriel, scribed for Juan Miguel Cartwright MD on 07/23/17 at 1300 . HPI Chest Pain - HPI Summary HPI Summary: This patient is a 52 year old F presenting to [facility] accompanied by her with a chief complaint of CP that she had been having every day for 3 months. Pt states she has the pain 2-3 times a day and it lasts for 20-30 minutes. The pain is in her chest and radiates into her left arm, left shoulder, and her jaw , during the episodes she also experience nausea. Pt was seen in April for the pain and was told its all in her head. She has seen her PCP since then and they suggested she come in for an evaluation. Pt states she cant take the pain anymore. - History of Current Complaint Chief Complaint: EDChestPainROMI Time Seen by Provider: 07/23/17 11:57 Hx Obtained From: Patient Onset/Duration: Started Weeks Ago, Still Present Timing: Intermittent, Lasting Minutes - 20-30 Initial Severity: Mild Current Severity: Mild Chest Pain Radiates: Yes Chest Pain Radiates To:: Shoulder, Arm, Jaw Associated Signs and Symptoms: Positive: Nausea Related History: Similar Episode/Dx as: - chest wall pain - Additional Pertinent History Primary Care Physician: HELDER - Allergy/Home Medications Allergies/Adverse Reactions: Allergies Allergy/AdvReac Type Severity Reaction Status Date / Time MS Latex [Latex] Allergy Blisters Verified 10/19/16 15:55 MS Aspirin [Aspirin] AdvReac Unknown Nausea Verified 10/19/16 15:55 Home Medications: Home Medications Cholecalciferol TAB* [Vitamin D TAB*] 2,000 units PO DAILY 07/23/17 [History Confirmed 07/23/17] Vit 40/Iron/Folic/Dha [ Multi + Dha 27-0.8-250 mg] 1 cap PO QAM 07/23/17 [History Confirmed 07/23/17] Thiamine TAB* [Vitamin B-1 TAB*] 250 mg PO DAILY 07/23/17 [History Confirmed ] PMH/Surg Hx/FS Hx/Imm Hx Endocrine/Hematology History: Reports: Hx Diabetes - UNMED SINCE 2013 Cardiovascular History: Reports: Hx Hypercholesterolemia, Hx Hypertension Denies: Hx Congenital Heart Disease, Hx Congestive Heart Failure, Hx Coronary Artery Disease, Hx Deep Vein Thrombosis, Hx Embolism, Hx Pacemaker/ICD History: Denies: Hx Renal Disease Musculoskeletal History: Denies: Hx Arthritis, Hx Fibromyalgia, Hx Orthopedic Injury, Other Musculoskeletal History Sensory History: Reports: Hx Contacts or Glasses Denies: Hx Eye Injury, Hx Legally Blind, Hx Vision Problem, Hx Hearing Aid, Hx Hearing Problem, Other Sensory Impairments Opthamlomology History: Reports: Hx Contacts or Glasses Denies: Hx Eye Injury, Hx Legally Blind, Hx Vision Problem, Other Sensory Impairments Neurological History: Reports: Hx Headaches, Hx Migraine - hemiplegic migraines. none in past year, Hx Transient Ischemic Attacks (TIA) Denies: Hx Dementia, Hx Developmental Delay, Hx Nerve Disease, Hx Seizures, Other Neuro Impairments/Disorders Psychiatric History: Reports: Hx Anxiety, Hx Depression Denies: Hx Panic Disorder - Cancer History Hx Chemotherapy: No Hx Radiation Therapy: No - Surgical History Surgery Procedure, Year, and Place: X1 (22 YRS AGO). ESOPHAGEAL TIGHTENING VIA SCOPE FOR REFLUX. CERVICAL ABLATION. GIA FUNDOPLICATION. LEFT ARM ORIF Infectious Disease History: Denies: Hx of Known/Suspected MRSA, Hx Shingles, Hx Tuberculosis, Traveled Outside the [place] in Last 30 Days - Family History Family History: FHx of breast CA - aunt and grandmother - Social History Alcohol Use: None Substance Use Type: Reports: None Smoking Status (MU): Current Some Day Smoker Review of Systems Positive: Chest Pain - that radiates Positive: Nausea All Other Systems Reviewed And Are Negative: Yes Physical Exam - Summary Physical Exam Summary: Appearance: The patient is well-nourished in no acute distress and in no acute pain. Skin: The skin is warm and dry and skin color reflects adequate perfusion. HEENT: The head is normocephalic and atraumatic. The pupils are equal and reactive. The conjunctivae are clear and without drainage. Nares are patent and without drainage. Mouth reveals moist mucous membranes and the throat is without erythema and exudate. The external ears are intact. The ear canals are patent and without drainage. The tympanic membranes are intact. Neck: the neck is supple with full range of motion and non-tender. There are no carotid bruits. There is no neck vein distension. Respiratory: left chest wall tenderness. Lungs are clear to auscultation and breath sounds are symmetrical and equal. Cardiovascular: Heart is regular rate and rhythm. There is no murmur or rub auscultated. There is no peripheral edema and pulses are symmetrical and equal. Abdomen: The abdomen is soft and non-tender. There are normal bowel sounds heard in all four quadrants and there is no organomegaly palpated. Musculoskeletal: There is no back tenderness noted. Extremities are non-tender with full range of motion. There is good capillary refill. There is no peripheral edema or calf tenderness elicited. Neurological: Patient is alert and oriented to person, place and time. The patient has symmetrical motor strength in all four extremities. Cranial nerves are grossly intact. Deep tendon reflexes are symmetrical and equal in all four extremities. Psychiatric: The patient has an appropriate affect and does not exhibit any anxiety or depression. Triage Information Reviewed: Yes Vital Signs On Initial Exam: Initial Vitals BP 130/90 07/23/17 12:22 Vital Signs Reviewed: Yes Diagnostics - Vital Signs Vital Signs Pulse Resp BP Pulse Ox 07/23/17 16:00 84 17 87/48 98 07/23/17 15:30 85 22 117/93 95 07/23/17 15:00 91 19 121/74 94 07/23/17 14:30 85 15 105/84 100 07/23/17 14:00 83 19 123/75 97 07/23/17 13:30 79 15 117/71 96 07/23/17 13:05 91 18 94 07/23/17 13:00 93 14 132/80 96 07/23/17 12:30 96 24 137/82 95 07/23/17 12:24 90 96 07/23/17 12:22 130/90 - Laboratory Lab Results: Lab Results 07/23/17 07/23/17 07/23/17 Range/Units 12:15 12:15 12:15 WBC 9.7 (3.5-10.8) 10^3/ul RBC 4.83 (4.0-5.4) 10^6/ul Hgb 13.8 (12.0-16.0) g/dl Hct 41 (35-47) % MCV 85 (80-97) fL MCH 29 (27-31) pg MCHC 34 (31-36) g/dl RDW 14 (10.5-15) % Plt Count 372 (150-450) 10^3/ul MPV 8 (7.4-10.4) um3 Neut % (Auto) 47.0 (38-83) % Lymph % (Auto) 45.4 (25-47) % Island % (Auto) 5.4 (1-9) % Eos % (Auto) 1.1 (0-6) % Baso % (Auto) 1.1 (0-2) % Absolute Neuts (auto) 4.6 (1.5-7.7) 10^3/ul Absolute Lymphs (auto) 4.4 (1.0-4.8) 10^3/ul Absolute Monos (auto) 0.5 (0-0.8) 10^3/ul Absolute Eos (auto) 0.1 (0-0.6) 10^3/ul Absolute Basos (auto) 0.1 (0-0.2) 10^3/ul Absolute Nucleated RBC 0 10^3/ul Nucleated RBC % 0 INR (Anticoag Therapy) 0.85 (0.77-1.02) D-Dimer, Quantitative < 200 (Less Than 230) ng/mL Sodium 137 (133-145) mmol/L Potassium 3.7 (3.5-5.0) mmol/L Chloride 107 (101-111) mmol/L Carbon Dioxide 21 L (22-32) mmol/L Anion Gap 9 (2-11) mmol/L BUN 21 (6-24) mg/dL Creatinine 0.76 (0.51-0.95) mg/dL Est GFR ( Amer) 103.6 (>60) Est GFR (Non-Af Amer) 80.6 (>60) BUN/Creatinine Ratio 27.6 H (8-20) Glucose 98 (70-100) mg/dL Lactic Acid (0.5-2.0) mmol/L Calcium 10.1 (8.6-10.3) mg/dL Total Bilirubin 0.30 (0.2-1.0) mg/dL AST 29 (13-39) U/L ALT 36 (7-52) U/L Alkaline Phosphatase 59 (34-104) U/L Troponin I 0.04 H* (<0.04) ng/mL Total Protein 7.3 (6.4-8.9) g/dL Albumin 4.5 (3.2-5.2) g/dL Globulin 2.8 (2-4) g/dL Albumin/Globulin Ratio 1.6 (1-3) //18 Range/Units 12:15 WBC (3.5-10.8) 10^3/ul RBC (4.0-5.4) 10^6/ul Hgb (12.0-16.0) g/dl Hct (35-47) % MCV (80-97) fL MCH (27-31) pg MCHC (31-36) g/dl RDW (10.5-15) % Plt Count (150-450) 10^3/ul MPV (7.4-10.4) um3 Neut % (Auto) (38-83) % Lymph % (Auto) (25-47) % Island % (Auto) (1-9) % Eos % (Auto) (0-6) % Baso % (Auto) (0-2) % Absolute Neuts (auto) (1.5-7.7) 10^3/ul Absolute Lymphs (auto) (1.0-4.8) 10^3/ul Absolute Monos (auto) (0-0.8) 10^3/ul Absolute Eos (auto) (0-0.6) 10^3/ul Absolute Basos (auto) (0-0.2) 10^3/ul Absolute Nucleated RBC 10^3/ul Nucleated RBC % INR (Anticoag Therapy) (0.77-1.02) D-Dimer, Quantitative (Less Than 230) ng/mL Sodium (133-145) mmol/L Potassium (3.5-5.0) mmol/L Chloride (101-111) mmol/L Carbon Dioxide (22-32) mmol/L Anion Gap (2-11) mmol/L BUN (6-24) mg/dL Creatinine (0.51-0.95) mg/dL Est GFR ( Amer) (>60) Est GFR (Non-Af Amer) (>60) BUN/Creatinine Ratio (8-20) Glucose (70-100) mg/dL Lactic Acid 1.4 (0.5-2.0) mmol/L Calcium (8.6-10.3) mg/dL Total Bilirubin (0.2-1.0) mg/dL AST (13-39) U/L ALT (7-52) U/L Alkaline Phosphatase (34-104) U/L Troponin I (<0.04) ng/mL Total Protein (6.4-8.9) g/dL Albumin (3.2-5.2) g/dL Globulin (2-4) g/dL Albumin/Globulin Ratio (1-3) Result Diagrams: 07/23/17 12:15 07/23/17 12:15 Lab Statement: Any lab studies that have been ordered have been reviewed, and results considered in the medical decision making process. - Radiology CXR Radiology Interpretation Completed By: Radiologist - EKG 11:38 Cardiac Rate: Tachycardia EKG Rhythm: Sinus Tachycardia - 102 BMP EKG Interpretation: Nonspecific septal changes Chest Pain Course/Dx - Course Course Of Treatment: Ms. Lopez presented with episodes of chest pain. She has been diagnosed with conversion disorder here in the past and she tells me tearfully that her PMD said he didn't believe that she has chest pain. I reassured her that I was taking her C/O seriously. When her initial labs, ecg and cxr were normal, I again reassured her that this meant that she was not having any dangerous condition such as a heart attack or a blood clot and that it did not mean she was not having chest pain. Nevertheless, she was upset and refused to stay for a repeat troponin. I 'm not sure what the etiology of her CP is. - Diagnoses Provider Diagnoses: Chest pain Discharge - Discharge Plan Condition: Stable Disposition: HOME Patient Education Materials: Chest Pain (ED) Referrals: Session Brian VILLATORO [Primary Care Provider] - 3 Days Additional Instructions: RETURN TO EMERGENCY DEPARTMENT FOR ANY NEW OR WORSENING SYMPTOMS The documentation as recorded by the Eulalio bai Gabriel accurately reflects the service I personally performed and the decisions made by me, Juan Miguel Cartwright MD.
== END 2017-07-23 16:15 | disposition home or self-care (01) ==
LOC: ED 11:37
DX: R07.9 Chest pain, unspecified (principal); R11.0 Nausea; Z72.0 Tobacco use; Z86.79 Personal history of other diseases of the circulatory system
CPT/HCPCS: 36415; 71046; 80053; 83605; 84484; 85025; 85379; 85610; 93005; 99282; J1885

== ENCOUNTER 2018-09-22 10:18 | Emergency (ER) | payer BC ==
[2018-09-22 10:56] VITALS: BP 119/61
--- NOTE | 2018-09-22 11:07 | UC ---
Hand/Wrist HPI - HPI Summary HPI Summary: 53 yo female presents with right wrist and left thumb injury. She tells me that about a week ago she tripped and fell forward with her hands outstretched. Her left thumb was bent backwards and her right wrist impacted the ground. She is right handed. She has been resting and icing the areas, but pain has not improved. She tells me that she works at the [employer] and is doing a lot of lifting and uses her hands a lot daily. Denies numbness or tingling. - History Of Current Complaint Chief Complaint: UCTrauma Stated Complaint: WRIST INJURY Time Seen by Provider: 09/22/18 10:58 Hx Obtained From: Patient Onset/Duration: Sudden Onset Severity Initially: Moderate Severity Currently: Moderate Pain Intensity: 7 Pain Scale Used: 0-10 Numeric - Allergies/Home Medications Allergies/Adverse Reactions: Allergies Allergy/AdvReac Type Severity Reaction Status Date / Time latex Allergy Blisters Verified 09/22/18 10:44 aspirin AdvReac Nausea Verified 09/22/18 10:44 PMH/Surg Hx/FS Hx/Imm Hx Endocrine History: Diabetes, Dyslipidemia Cardiovascular History: Hypertension - Surgical History Surgical History: Yes Surgery Procedure, Year, and Place: X1 (22 YRS AGO). ESOPHAGEAL TIGHTENING VIA SCOPE FOR REFLUX. CERVICAL ABLATION 2009. GIA FUNDOPLICATION. LEFT ARM ORIF - Family History Family History: FHx of breast CA - aunt and grandmother - Social History Occupation: Employed Full-time Lives: With Family Alcohol Use: None Substance Use Type: None Smoking Status (MU): Current Some Day Smoker Amount Used/How Often: 1.5 -1 pack a day Have You Smoked in the Last Year: Yes Household Exposure Type: Cigarettes - Immunization History Most Recent Influenza Vaccination: 02/2013 Most Recent Tetanus Shot: 2011 Most Recent Pneumonia Vaccination: 01/2013 Review of Systems All Other Systems Reviewed And Are Negative: Yes Constitutional: Positive: Negative Skin: Positive: Negative Respiratory: Positive: Negative Cardiovascular: Positive: Negative Neurovascular: Positive: Negative Musculoskeletal: Positive: Other: - Right wrist pain. Left thumb pain Neurological: Positive: Negative Psychological: Positive: Negative Physical Exam - Summary Physical Exam Summary: GENERAL: NAD. WDWN. No pain distress. SKIN: No rashes, sores, lesions, or open wounds. CHEST: No accessory muscle use. Breathing comfortably and in no distress. CV: Pulses intact radial and ulnar. Cap refill <2seconds MSK: RIGHT WRIST: FROM with mild pain at dorsal aspect with extension. TTP over entire dorsal wrist. 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 No edema or obvious bony deformities. No snuffbox tenderness. LEFT THUMB: Moderate TTP at EPB and pain worse with extension and hyperflexion. 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 No edema or obvious bony deformities. NEURO: Alert. Sensations intact hand and all fingers. PSYCH: Age appropriate behavior. Triage Information Reviewed: Yes Vital Signs: Initial Vital Signs Temp 99.2 F 09/22/18 10:47 Pulse 92 09/22/18 10:47 Resp 18 09/22/18 10:47 BP 119/61 09/22/18 10:47 Pulse Ox 99 09/22/18 10:47 Vital Signs Reviewed: Yes Hand/Wrist Course/Dx - Course Course Of Treatment: XR: IMPRESSION: NO FRACTURE OF THE WRIST IS NOTED. IMPRESSION: No fracture of the left thumb is noted. Pt was placed in the a thumb spica splint for her left thumb. Suspect tendon strain of thumb thumb and ligament strain of right wrist. Will refer her to Orthopedics for further evaluation. 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 - Differential Dx/Diagnosis Provider Diagnosis: Right wrist pain, Left thumb sprain Discharge - Sign-Out/Discharge Documenting (check all that apply): Patient Departure All imaging exams completed and their final reports reviewed: Yes - Discharge Plan Condition: Stable Disposition: HOME Patient Education Materials: Skier's Thumb (ED) Referrals: Roseann Moreland MD [Primary Care Provider] - Hugh Avalos MD [Medical Doctor] - As Soon As Possible Additional Instructions: If you develop a fever, shortness of breath, chest pain, new or worsening symptoms - please call your PCP or go to the ED. Please use the thumb brace as much as possible Please call Orthopedics at the number below to schedule an appointment for further evaluation of your thumb and wrist pain - Billing Disposition and Condition Condition: STABLE Disposition: Home
== END 2018-09-22 12:00 | disposition home or self-care (01) ==
LOC: UCEAST 10:18
DX: M25.531 Pain in right wrist (principal); S63.602A Unspecified sprain of left thumb, initial encounter; W01.0XXA Fall on same level from slipping, tripping and stumbling without subsequent striking against object, initial encounter; Y92.9 Unspecified place or not applicable; E78.5 Hyperlipidemia, unspecified; I10 Essential (primary) hypertension; Z88.6 Allergy status to analgesic agent; Z91.040 Latex allergy status; Z72.0 Tobacco use
CPT/HCPCS: 99212; G0463

== ENCOUNTER 2018-11-06 09:59 | Emergency (ER) | payer BC ==
--- NOTE | 2018-11-06 10:21 | ED ---
HPI Cardiac - HPI Summary HPI Summary: This patient is a 53 year old F brought to the ED via EMS with a chief complaint of palpitations since 944 this morning. 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 Patient did not pass out. She has felt nauseous and dizzy before, but her symptoms are worse this time. Episode lasted 15-20 minutes. Patient sat down and put ice packs on back of neck. Patient had a sandwich and iced tea for breakfast and slept 7.5 hours last night. The patient rates the pain 0/10 in severity. Symptoms aggravated by nothing. Symptoms alleviated by nothing. Patient denies CP, SOB, abdominal pain, black/tarry stools. PMHx of stent and blocked artery and DM, HTN, HLD, but no anemia. - History of Current Complaint Chief Complaint: EDDysrhythmPalp Stated Complaint: HEART PALPATATIONS PER EMS Time Seen by Provider: 11/06/18 10:11 Hx Obtained From: Patient Onset/Duration: Started Hours Ago - 944 this morning Time of Onset: 09:45 Timing: Constant, Lasting Minutes - 15-20 minute episde Current Severity: None Pain Intensity: 0 Pain Scale Used: 0-10 Numeric Chest Pain Radiates: No Character: Irregular Aggravating Factor(s): Nothing Alleviating Factor(s): Nothing Associated Signs and Symptoms: Positive: Negative - Black/tarry stools, Diaphoresis, Nausea, Other: - Palpitations. Negative: Chest Pain, Shortness of Breath, Syncope, Abdominal Pain - Additional Pertinent History Primary Care Physician: HELDER - Allergy/Home Medications Allergies/Adverse Reactions: Allergies Allergy/AdvReac Type Severity Reaction Status Date / Time latex Allergy Blisters Verified 11/06/18 10:09 aspirin AdvReac Nausea Verified 11/06/18 10:09 Home Medications: Home Medications Aspirin 81 mg CHEW TAB* [Aspirin Low Dose TAB*] 81 mg PO DAILY 11/06/18 [ History Confirmed 11/06/18] Atorvastatin* [Lipitor*] 40 mg PO DAILY 11/06/18 [History Confirmed 11/06/18] Cyclobenzaprine TAB* [Flexeril 10 MG TAB*] 10 mg PO DAILY 11/06/18 [History Confirmed 11/06/18] Metoprolol Tartrate TAB* [Lopressor TAB*] 50 mg PO DAILY 11/06/18 [History Confirmed 11/06/18] Ticagrelor* [Brilinta*] 90 mg PO BID 11/06/18 [History Confirmed 11/06/18] PMH/Surg Hx/FS Hx/Imm Hx Endocrine/Hematology History: Reports: Hx Diabetes - type 2 Denies: Hx Anemia Cardiovascular History: Reports: Hx Hypercholesterolemia, Hx Hypertension Denies: Hx Congenital Heart Disease, Hx Congestive Heart Failure, Hx Coronary Artery Disease, Hx Deep Vein Thrombosis, Hx Embolism, Hx Pacemaker/ICD Respiratory History: Denies: Hx Asthma, Hx Chronic Obstructive Pulmonary Disease (COPD) History: Denies: Hx Renal Disease Musculoskeletal History: Denies: Hx Arthritis, Hx Fibromyalgia, Hx Orthopedic Injury, Hx Osteoporosis , Other Musculoskeletal History Sensory History: Reports: Hx Contacts or Glasses Denies: Hx Eye Injury, Hx Legally Blind, Hx Vision Problem, Hx Hearing Aid, Hx Hearing Problem, Other Sensory Impairments Opthamlomology History: Reports: Hx Contacts or Glasses Denies: Hx Eye Injury, Hx Legally Blind, Hx Vision Problem, Other Sensory Impairments Neurological History: Reports: Hx Headaches, Hx Migraine - hemiplegic migraines. none in past year, Hx Transient Ischemic Attacks (TIA) Denies: Hx Dementia, Hx Developmental Delay, Hx Nerve Disease, Hx Seizures, Other Neuro Impairments/Disorders Psychiatric History: Reports: Hx Anxiety, Hx Depression Denies: Hx Panic Disorder - Cancer History Hx Chemotherapy: No Hx Radiation Therapy: No - Surgical History Surgery Procedure, Year, and Place: X1 (22 YRS AGO). ESOPHAGEAL TIGHTENING VIA SCOPE FOR REFLUX. CERVICAL ABLATION 2008. GIA FUNDOPLICATION. LEFT ARM ORIF Infectious Disease History: Yes Infectious Disease History: Denies: Hx of Known/Suspected MRSA, Hx Shingles, Hx Tuberculosis, Traveled Outside the [place] in Last 30 Days - Family History Family History: FHx of breast CA - aunt and grandmother - Social History Alcohol Use: None Hx Substance Use: No Substance Use Type: Reports: None Hx Tobacco Use: Yes Smoking Status (MU): Light Every Day Tobacco Smoker Amount Used/How Often: 1.5 -1 pack a day Have You Smoked in the Last Year: Yes Review of Systems Positive: Palpitations. Negative: Chest Pain Negative: Shortness Of Breath Gastrointestinal: Negative - Black/tarry stool Positive: Nausea. Negative: Abdominal Pain Neurological: Other - Dizziness Negative: Syncope All Other Systems Reviewed And Are Negative: Yes Physical Exam - Summary Physical Exam Summary: Appearance: well appearing, no pain distress Skin: warm, dry, reflects adequate perfusion Head/face:normal Eyes:EOMI, NILA ENT: mucous membranes moist Neck: supple, non-tender Respiratory: CTA, breath sounds present Cardiovascular:RRR, pulses symmetrical Abdomen: non-tender, soft Bowel Sounds:present Musculoskeletal:normal, strength/ROM intact Neuro:normal, sensory motor intact, A&Ox3 Triage Information Reviewed: Yes Vital Signs On Initial Exam: Initial Vitals Temp Pulse Resp BP Pulse Ox 97.9 F 79 18 139/82 95 11/06/18 10:05 11/06/18 10:05 11/06/18 10:05 11/06/18 10:05 11/06/18 10:05 Vital Signs Reviewed: Yes Diagnostics - Vital Signs Vital Signs Temp Pulse Resp BP Pulse Ox 11/06/18 10:05 97.9 F 79 18 139/82 95 - Laboratory Result Diagrams: 11/06/18 11:14 11/06/18 11:14 Lab Statement: Any lab studies that have been ordered have been reviewed, and results considered in the medical decision making process. - EKG 1005 Cardiac Rate: NL - 68 BPM EKG Rhythm: Sinus Rhythm ST Segment: Normal Summary of EKG Findings: Normal EKG. NSR: 68 BPM. Normal [place]. Normal Interval. Normal ST Re-Evaluation - Re-Evaluation First Eval Re-Evaluation Time: 12:33 Change: Improved Comment: Discussed results with patient. Patient reports feeilng better. Patient will be discharged home with dx of palpitations, near syncope, and mild dehydration. Patient understands and agrees with this plan. Disposition - Course Course Of Treatment: Patient with a short episode of near syncope with associated palpitations. No arrhythmia here. Slight dehydration. Symptoms all gone after hydrating. Discharged to follow closely primary care physician for possible outpatient Holter monitor. - Differential Dx - Cardiopulmonary Differential Diagnoses - Cardiopulmonary: Other - Arrhythmia, dehydration, near syncope, PE, infection - Diagnoses Provider Diagnoses: Palpitations, Near syncope, Mild dehydration Discharge - Sign-Out/Discharge Documenting (check all that apply): Patient Departure Patient Received Moderate/Deep Sedation with Procedure: No - Discharge Plan Condition: Improved Disposition: HOME Patient Education Materials: Heart Palpitations (ED), Near Syncope (ED) Forms: *Work Release Referrals: Roseann Moreland MD [Primary Care Provider] - Additional Instructions: Follow-up with your doctor as scheduled next week. You may need to wear a Holter monitor which can be ordered by your doctor. Stay well-hydrated. You should be urinating clear. Avoid caffeine, alcohol and cough or cold medicines. Return if worse, chest pains, recurrent palpitations, new symptoms or other concerns. - Billing Disposition and Condition Condition: IMPROVED Disposition: Home - Attestation Statements Document Initiated by Molly: Yes Documenting Scribe: Travis Reyez Provider For Whom Molly is Documenting (Include Credential): Antoni Rivera MD Scribe Attestation: Travis Almanza, scribed for Antoni Rivera MD on 11/06/18 at 1838. Scribe Documentation Reviewed: Yes Provider Attestation: The documentation as recorded by the Travis bai accurately reflects the service I personally performed and the decisions made by , Antoni Rivera MD Status of Scribe Document: Viewed
[2018-11-06] MEDS ORDERED: NS 0.9% 1000 ML** 1,000 ML IV ONE (10:50)
[2018-11-06 11:22] LABS: ABS Basophils 0.1 10^3/ul (0-0.2); ABS Eosinophils 0.1 10^3/ul (0-0.6); ABS Lymphocytes 3.6 10^3/ul (1.0-4.8); ABS Monocytes 0.6 10^3/ul (0-0.8); ABS Neutrophils 4.4 10^3/ul (1.5-7.7); Eosinophil % 1.5 %; Hematocrit 40 % (35-47); Hemoglobin 13.2 g/dL (12.0-16.0); Mean Corpuscular HGB Conc 33 g/dL (31-36); Mean Corpuscular Hemoglobin 29 pg (27-31); Mean Corpuscular Volume 87 fL (80-97); Mean Platelet Volume 8.1 fL (7.4-10.4); Platelet Count 332 10^3/uL (150-450); Red Cell Distribution Width 15 % (10.5-15); White Blood Count 8.7 10^3/uL (3.5-10.8)
[2018-11-06 11:37] LABS: INR 0.96 (0.82-1.09)
[2018-11-06 11:45] LABS: Albumin 4.2 g/dL (3.2-5.2); Albumin/Globulin Ratio 1.6 (1-3); BUN/Creatinine Ratio 29.9 (8-20); Calcium 9.6 mg/dL (8.6-10.3); EGFR African American 83.1 (>60); EGFR Non-African American 68.6 (>60); Globulin 2.6 g/dL (2-4); Potassium 4.3 mmol/L (3.5-5.0); Total Bilirubin 0.3 mg/dL (0.2-1.0); Total Protein 6.8 g/dL (6.4-8.9)
[2018-11-06 12:51] VITALS: BP 151/81
[2018-11-06 13:11] LABS: TSH (Thyroid Stimulating Horm) 1.13 mcIU/mL (0.34-5.60)
== END 2018-11-06 12:50 | disposition home or self-care (01) ==
LOC: ED 09:59
DX: R00.2 Palpitations (principal); R55 Syncope and collapse; E86.0 Dehydration; R42 Dizziness and giddiness; Z88.6 Allergy status to analgesic agent; E11.9 Type 2 diabetes mellitus without complications; I10 Essential (primary) hypertension; R51 Headache; F17.210 Nicotine dependence, cigarettes, uncomplicated; R11.0 Nausea
CPT/HCPCS: 36415; 80053; 83605; 83735; 84443; 84484; 85025; 85610; 96360; 99283

== ENCOUNTER 2019-01-09 10:29 | Emergency (ER) | payer BC, OTHER ==
--- NOTE | 2019-01-09 10:55 | ED ---
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 She sustained a small bruise after the injury but notes that it has drastically increased in size since then. She rates her current pain severity a 4/10. Per the triage, the pt is on Brilinta secondary to stent. No alleviating or aggravating factors noted. She also reports nausea. - History of Current Complaint Chief Complaint: EDBleedingDisorder Stated Complaint: ADOMINAL INJURY PER PT Time Seen by Provider: 01/09/19 10:48 Hx Obtained From: Patient Onset/Duration: Gradual Onset, Lasting Days, Still Present Timing: Days Severity Initially: Moderate Severity Currently: Moderate Pain Intensity: 4 Pain Scale Used: 0-10 Numeric Location: Diffuse Aggravating Factor(s): Nothing Alleviating Factor(s): Nothing Associated Signs and Symptoms: Positive: Nausea, Other: - Positive - diffuse abd pain. Negative: Fever Allergies/Adverse Reactions: Allergies Allergy/AdvReac Type Severity Reaction Status Date / Time latex Allergy Blisters Verified 01/09/19 10:40 aspirin AdvReac Nausea Verified 01/09/19 10:40 PMH/Surg Hx/FS Hx/Imm Hx Endocrine/Hematology History: Reports: Hx Diabetes - type 2 Denies: Hx Anemia Cardiovascular History: Reports: Hx Hypercholesterolemia, Hx Hypertension Denies: Hx Congenital Heart Disease, Hx Congestive Heart Failure, Hx Coronary Artery Disease, Hx Deep Vein Thrombosis, Hx Embolism, Hx Pacemaker/ICD Respiratory History: Denies: Hx Asthma, Hx Chronic Obstructive Pulmonary Disease (COPD) History: Denies: Hx Renal Disease Musculoskeletal History: Denies: Hx Arthritis, Hx Fibromyalgia, Hx Orthopedic Injury, Hx Osteoporosis , Other Musculoskeletal History Sensory History: Reports: Hx Contacts or Glasses Denies: Hx Eye Injury, Hx Legally Blind, Hx Vision Problem, Hx Hearing Aid, Hx Hearing Problem, Other Sensory Impairments Opthamlomology History: Reports: Hx Contacts or Glasses Denies: Hx Eye Injury, Hx Legally Blind, Hx Vision Problem, Other Sensory Impairments Neurological History: Reports: Hx Headaches, Hx Migraine - hemiplegic migraines. none in past year, Hx Transient Ischemic Attacks (TIA) Denies: Hx Dementia, Hx Developmental Delay, Hx Nerve Disease, Hx Seizures, Other Neuro Impairments/Disorders Psychiatric History: Reports: Hx Anxiety, Hx Depression Denies: Hx Panic Disorder - Cancer History Hx Chemotherapy: No Hx Radiation Therapy: No - Surgical History Surgery Procedure, Year, and Place: X1 (22 YRS AGO). ESOPHAGEAL TIGHTENING VIA SCOPE FOR REFLUX. CERVICAL ABLATION 2009. GIA FUNDOPLICATION. LEFT ARM ORIF Infectious Disease History: No Infectious Disease History: Denies: Hx of Known/Suspected MRSA, Hx Shingles, Hx Tuberculosis, Traveled Outside the [place] in Last 30 Days - Family History Known Family History: Positive: Cardiac Disease, Diabetes, Other - CA Family History: FHx of breast CA - aunt and grandmother - Social History Alcohol Use: None Hx Substance Use: No Substance Use Type: Reports: None Hx Tobacco Use: Yes Smoking Status (MU): Light Every Day Tobacco Smoker Amount Used/How Often: 1.5 -1 pack a day Have You Smoked in the Last Year: Yes Review of Systems Negative: Fever Positive: Abdominal Pain, Nausea All Other Systems Reviewed And Are Negative: Yes Physical Exam - Summary Physical Exam Summary: Appearance: The patient is well-nourished in no acute distress and in no acute pain. Skin: The skin is warm and dry and skin color reflects adequate perfusion. HEENT: The head is normocephalic and atraumatic. The pupils are equal and reactive. The conjunctivae are clear and without drainage. Nares are patent and without drainage. Mouth reveals moist mucous membranes and the throat is without erythema and exudate. The external ears are intact. The ear canals are patent and without drainage. The tympanic membranes are intact. Neck: The neck is supple with full range of motion and non-tender. There are no carotid bruits. There is no neck vein distension. Respiratory: Chest is non-tender. Lungs are clear to auscultation and breath sounds are symmetrical and equal. Cardiovascular: Heart is regular rate and rhythm. There is no murmur or rub auscultated. There is no peripheral edema and pulses are symmetrical and equal. Abdomen: The abdomen is soft and non-tender. Ecchymosis, subcutaneous hematoma on lower abd (15 cm by 5cm). There are normal bowel sounds heard in all four quadrants and there is no organomegaly palpated. Musculoskeletal: There is no back tenderness noted. Extremities are non-tender with full range of motion. There is good capillary refill. There is no peripheral edema or calf tenderness elicited. Neurological: Patient is alert and oriented to person, place and time. The patient has symmetrical motor strength in all four extremities. Cranial nerves are grossly intact. Deep tendon reflexes are symmetrical and equal in all four extremities. Psychiatric: The patient has an appropriate affect and does not exhibit any anxiety or depression. Triage Information Reviewed: Yes Vital Signs On Initial Exam: Initial Vitals Temp Pulse Resp BP Pulse Ox 99.0 F 91 12 149/89 98 01/09/19 10:35 01/09/19 10:35 01/09/19 10:35 01/09/19 10:35 01/09/19 10:35 Vital Signs Reviewed: Yes Diagnostics - Vital Signs Vital Signs Temp Pulse Resp BP Pulse Ox 01/09/19 10:35 99.0 F 91 12 149/89 98 - Laboratory Result Diagrams: 01/09/19 11:02 Lab Statement: Any lab studies that have been ordered have been reviewed, and results considered in the medical decision making process. Abdominal Pain Fem Course/Dx - Course Course Of Treatment: Ms. Lopez is presented here with a bruise on her lower anterior abdomen. She noticed it at least 4-5 days ago and it seemed to be getting worse to her. She denies any other symptoms. The bruise looked like it was getting better. On palpation it seemed to involve some subcutaneous hematoma. Her vital signs are stable and she was nontoxic in appearance. She is on department to and her platelets, H&H and INR were all within normal limits. I recommend she keep an eye on it and tried to reassure her that it would improve. - Diagnoses Provider Diagnoses: Hematoma Discharge - Sign-Out/Discharge Documenting (check all that apply): Patient Departure - discharge Patient Received Moderate/Deep Sedation with Procedure: No - Discharge Plan Condition: Stable Disposition: HOME Patient Education Materials: Hematoma (ED) Referrals: Roseann Moreland MD [Primary Care Provider] - 3 Days Additional Instructions: Tylenol is recommended for pain management. Please follow up with primary care physician within 3 days. Return to ED for any new or worsening symptoms. - Billing Disposition and Condition Condition: STABLE Disposition: Home - Attestation Statements Document Initiated by Scribe: Yes Documenting Scribe: Ronny Rodriguez Provider For Whom Scribe is Documenting (Include Credential): Juan Miguel Cartwright MD Scribe Attestation: I, Ronny Rodriguez, scribed for Juan Miguel Cartwright MD on 01/09/19 at 1823. Scribe Documentation Reviewed: Yes Provider Attestation: The documentation as recorded by the scribe, Ronny Rodriguez accurately reflects the service I personally performed and the decisions made by me, Juan Miguel Cartwright MD Status of Scribe Document: Viewed
[2019-01-09 11:12] LABS: ABS Basophils 0.1 10^3/ul (0-0.2); ABS Eosinophils 0.1 10^3/ul (0-0.6); ABS Monocytes 0.5 10^3/ul (0-0.8); Eosinophil % 1.2 %; Hematocrit 39 % (35-47); Hemoglobin 12.9 g/dL (12.0-16.0); Lymphocyte % 33.8 %; Mean Corpuscular HGB Conc 33 g/dL (31-36); Mean Corpuscular Hemoglobin 28 pg (27-31); Mean Corpuscular Volume 86 fL (80-97); Mean Platelet Volume 7.7 fL (7.4-10.4); Nucleated Red Blood Cells % 0.1; Platelet Count 421 10^3/uL (150-450); Red Blood Count 4.56 10^6 /uL (3.70-4.87); Red Cell Distribution Width 15 % (10-15); White Blood Count 11.7 10^3/uL (3.5-10.8)
[2019-01-09 11:16] LABS: INR 0.95 (0.82-1.09)
[2019-01-09 13:31] VITALS: BP 145/86
== END 2019-01-09 13:05 | disposition home or self-care (01) ==
LOC: ED 10:29
DX: S30.1XXA Contusion of abdominal wall, initial encounter (principal); W22.09XA Striking against other stationary object, initial encounter; Y92.242 Post office as the place of occurrence of the external cause; Y99.0 Civilian activity done for income or pay; Z88.8 Allergy status to other drugs, medicaments and biological substances; Z91.040 Latex allergy status; E11.9 Type 2 diabetes mellitus without complications; E78.00 Pure hypercholesterolemia, unspecified; I10 Essential (primary) hypertension; F17.210 Nicotine dependence, cigarettes, uncomplicated
CPT/HCPCS: 36415; 85025; 85610; 99282

== ENCOUNTER 2019-08-25 09:02 | Observation (INO) | payer BC ==
--- NOTE | 2019-08-25 09:05 | ED ---
Complex/Multi-Sys Presentation - HPI Summary HPI Summary: 54 year old F with cardiac hx arriving via EMS to [facility] accompanied by family complains of nausea and chest heaviness starting this morning. 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 She states she has had chest heaviness all morning. She has had similar episodes of weakness before. Hx cardiac stents 1 year ago placed at [place]. She had chest pain then and states that today's pain is similar to then. She had an echo done then which was positive. She is followed by cardiology at [place]. En route to ED, EMS noted altered mental status, left sided weakness, difficult with words. Symptoms aggravated by nothing. Symptoms alleviated by nothing. EMS gave 324 aspirin, 0.4 nitroglycerin, 4 mg Zofran. Medications reviewed. On Brilinta, aspirin, lisinopril, metformin. Allergies noted. Tho Cannon called by EMS in the field [id number]. Patient arrival to ED 09. Patient met at bedside upon arrival with Dr. Yanez 900. - History Of Current Complaint Hx Obtained From: Patient, EMS Onset/Duration: Lasting Hours, Still Present Timing: Constant Aggravating Factor(s): Nothing Alleviating Factor(s): Nothing - Allergies/Home Medications Allergies/Adverse Reactions: Allergies Allergy/AdvReac Type Severity Reaction Status Date / Time latex Allergy Blisters Verified 08/25/19 09:17 Home Medications: Home Medications metFORMIN* [Glucophage 500 MG TAB *] 500 mg PO BID 10/19/16 [History Confirmed 08/25/19] Cyanocobalamin TAB* [Vitamin B12 TAB*] 5,000 mcg PO DAILY 04/25/17 [History Confirmed 08/25/19] Lisinopril TAB* [Prinivil TAB 5 MG*] 10 mg PO DAILY 04/25/17 [History Confirmed 08/25/19] Thiamine TAB* [Vitamin B-1 TAB*] 250 mg PO DAILY 07/23/17 [History Confirmed ] Aspirin 81 mg CHEW TAB* [Aspirin Low Dose TAB*] 81 mg PO DAILY 11/06/18 [ History Confirmed 08/25/19] Ticagrelor* [Brilinta*] 90 mg PO BID 11/06/18 [History Confirmed 08/25/19] Cholecalciferol TAB* [Vitamin D TAB*] 1,000 unit PO DAILY 08/25/19 [History Confirmed 08/25/19] DULoxetine DR CAP* [Cymbalta CAP*] 20 mg PO DAILY 08/25/19 [History Confirmed ] Ezetimibe TAB* [Zetia TAB*] 10 mg PO DAILY 08/25/19 [History Confirmed 08/25/19] Magnesium Oxide TAB* [MagOx 400 TAB*] 400 mg PO DAILY 08/25/19 [History Confirmed 08/25/19] Metoprolol Succinate XL TAB* [Toprol XL TAB*] 50 mg PO DAILY 08/25/19 [History Confirmed 08/25/19] [place]-3 Fatty Acids (Nf) [Fish Oil (NF)] 1,000 mg PO DAILY 08/25/19 [History Confirmed 08/25/19] Potassium Chlor TAB* [Klor Con ER TAB*] 20 meq PO BID 08/25/19 [History Confirmed 08/25/19] Rosuvastatin (NF) [Crestor (NF)] 40 mg PO DAILY 08/25/19 [History Confirmed ] PMH/Surg Hx/FS Hx/Imm Hx Endocrine/Hematology History: Reports: Hx Diabetes - type 2 Denies: Hx Anemia Cardiovascular History: Reports: Hx Hypercholesterolemia, Hx Hypertension Denies: Hx Congenital Heart Disease, Hx Congestive Heart Failure, Hx Coronary Artery Disease, Hx Deep Vein Thrombosis, Hx Embolism, Hx Pacemaker/ICD Respiratory History: Denies: Hx Asthma, Hx Chronic Obstructive Pulmonary Disease (COPD) History: Denies: Hx Renal Disease Musculoskeletal History: Denies: Hx Arthritis, Hx Fibromyalgia, Hx Orthopedic Injury, Hx Osteoporosis , Other Musculoskeletal History Sensory History: Reports: Hx Contacts or Glasses Denies: Hx Eye Injury, Hx Legally Blind, Hx Vision Problem, Hx Hearing Aid, Hx Hearing Problem, Other Sensory Impairments Opthamlomology History: Reports: Hx Contacts or Glasses Denies: Hx Eye Injury, Hx Legally Blind, Hx Vision Problem, Other Sensory Impairments Neurological History: Reports: Hx Headaches, Hx Migraine - hemiplegic migraines. none in past year, Hx Transient Ischemic Attacks (TIA) Denies: Hx Dementia, Hx Developmental Delay, Hx Nerve Disease, Hx Seizures, Other Neuro Impairments/Disorders Psychiatric History: Reports: Hx Anxiety, Hx Depression Denies: Hx Panic Disorder - Cancer History Hx Chemotherapy: No Hx Radiation Therapy: No - Surgical History Surgery Procedure, Year, and Place: X1 (22 YRS AGO). ESOPHAGEAL TIGHTENING VIA SCOPE FOR REFLUX. CERVICAL ABLATION 2009. GIA FUNDOPLICATION. LEFT ARM ORIF Infectious Disease History: Denies: Hx of Known/Suspected MRSA, Hx Shingles, Hx Tuberculosis - Family History Known Family History: Positive: Cardiac Disease, Diabetes, Other - CA Family History: FHx of breast CA - aunt and grandmother - Social History Alcohol Use: None Hx Substance Use: No Substance Use Type: Reports: None Hx Tobacco Use: Yes Smoking Status (MU): Light Every Day Tobacco Smoker Amount Used/How Often: 1.5 -1 pack a day Have You Smoked in the Last Year: Yes Review of Systems Positive: Other - chest heaviness Positive: Vomiting, Nausea Neurological/Mental Status: Other - altered mental status, left sided weakness, difficult with words All Other Systems Reviewed And Are Negative: Yes Physical Exam - Summary Physical Exam Summary: Constitutional: Well-developed, Well-nourished, Alert. (-) Distressed. She is tearful. Skin: Warm, Dry HENT: Normocephalic; Atraumatic Eyes: Conjunctiva normal Neck: Musculoskeletal ROM normal neck. (-) JVD, (-) Nuchal rigidity Cardio: Rhythm regular, rate normal, Heart sounds normal; Intact distal pulses; Radial pulses are 2+ and symmetric. (-) Murmur Pulmonary/Chest wall: Effort normal. (-) Respiratory distress, (-) Wheezes, (-) Rales Abd: Soft. (-) Tenderness, (-) Distension, (-) Guarding, (-) Rebound Musculoskeletal: (-) Edema Lymph: (-) Cervical adenopathy Neuro: Alert, PERRL, Oriented x3, Strength normal, Cranial nerves II-XII are grossly intact. SILT, Strength 5/5 BUE and BLE, (-) Dysmetria, (-) Nystagmus, ambulates w steady gait. Psych: Mood and affect Normal Triage Information Reviewed: Yes Vital Signs Reviewed: Yes Procedures - Sedation Patient Received Moderate/Deep Sedation with Procedure: No Diagnostics - Laboratory Result Diagrams: 08/25/19 09:35 08/25/19 09:35 Lab Statement: Any lab studies that have been ordered have been reviewed, and results considered in the medical decision making process. - Radiology CXR Radiology Interpretation Completed By: Radiologist - IMPRESSION: No active cardiopulmonary disease is noted. ED physician has reviewed this imaging report. - EKG 0940 Cardiac Rate: NL - 61 BPM EKG Rhythm: Sinus Rhythm EKG Comparison: No Significant Change - 07/23/2017 Summary of EKG Findings: An EKG at 0940 reveals normal sinus rhythm 61 BPM, nml axis, nml intervals. No STEMI. No acute changes. When compared to 07/23/2017, no significant change. ED physician has reviewed and interpreted this EKG. Complex Multi-Symp Course/Dx Course Of Treatment: 54 y/o F w hx CAD s/p stent placement 1 year ago, conversion d/o p/w CP and episode of weakness. - PE tearful, non focal neuro exam. Tho cannon called off. D/w Dr. Yanez who agrees presentation more c/w conversion. Regarding CP, EKG unchanged, troponin normal x1. CXR unremarkable. 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 - d/w cardiology at [place] who recommends admission for obs. If ruled out w serial troponins and telemetry, can see in the office next week. Patient updated and in agreement - Diagnoses Provider Diagnoses: Chest pain, Vomiting During the Visit The Following Alert/Code Occurred: Code Cannon - 6300 called in the field by EMS - Physician Notifications Discussed Care Of Patient With: Ze Yanez Time Discussed With Above Provider: 09:01 Instructed by Provider To: Other - Cancel Code Cannon per Dr. Yanez. 1124 Dr. Lewis, cardiology at [place], states per cath report, patient has chronically occluded R coronary artery that they could not open. She had stent placed to circumflex artery. 50% occulsion to LAD. Recommends admission. 1131 Dr. Ortiz agrees to admit patient. Discharge ED - Sign-Out/Discharge Documenting (check all that apply): Patient Departure - Discharge Plan Condition: Stable Disposition: ADMITTED TO [facility] Referrals: Roseann Moreland MD [Primary Care Provider] - - Billing Disposition and Condition Condition: STABLE Disposition: Admitted to [facility] - Attestation Statements Document Initiated by Scribe: Yes Documenting Scribe: Nika Martin Provider For Whom Scribe is Documenting (Include Credential): Gray Ortega MD Scribe Attestation: I, Nika Martin, scribed for Gray Ortega MD on 08/25/19 at 1206. Scribe Documentation Reviewed: Yes Provider Attestation: The documentation as recorded by the scribe, Nika Martin accurately reflects the service I personally performed and the decisions made by , Gray Ortega MD Status of Scribe Document: Viewed
[2019-08-25 09:43] LABS: ABS Basophils 0.1 10^3/ul (0-0.2); ABS Eosinophils 0.1 10^3/ul (0-0.6); ABS Lymphocytes 2.9 10^3/ul (1.0-4.8); ABS Monocytes 0.4 10^3/ul (0-0.8); ABS Neutrophils 6.3 10^3/ul (1.5-7.7); Eosinophil % 0.6 %; Hematocrit 39 % (35-47); Hemoglobin 12.9 g/dL (12.0-16.0); Lymphocyte % 29.4 %; Mean Corpuscular HGB Conc 33 g/dL (31-36); Mean Corpuscular Hemoglobin 29 pg (27-31); Mean Corpuscular Volume 87 fL (80-97); Mean Platelet Volume 7.9 fL (7.4-10.4); Platelet Count 263 10^3/uL (150-450); Red Blood Count 4.44 10^6 /uL (3.70-4.87); Red Cell Distribution Width 14 % (10-15); White Blood Count 9.7 10^3/uL (3.5-10.8)
[2019-08-25 10:00] LABS: Albumin 3.9 g/dL (3.2-5.2); Albumin/Globulin Ratio 1.6 (1-3); BUN/Creatinine Ratio 29.5 (8-20); Calcium 8.6 mg/dL (8.6-10.3); EGFR African American 124.6 (>60); Globulin 2.5 g/dL (2-4); Total Bilirubin 0.3 mg/dL (0.2-1.0); Total Protein 6.4 g/dL (6.4-8.9)
[2019-08-25 10:02] LABS: Troponin I 0.01 ng/mL (<0.03)
--- NOTE | 2019-08-25 12:17 | CONS ---
NEUROLOGY CONSULTATION NOTE: DATE OF CONSULT: 08/25/19 CONSULTING PROVIDER: Dr. Ortega. REASON FOR CONSULT: Headache, numbness, and weakness all over. CHIEF COMPLAINT: Weakness all over with headaches. HISTORY OF PRESENT ILLNESS: Ms. Lopez is a 54-year-old right-handed female who has a known diagnosis of conversion disorder, who presented to the emergency room today due to symptoms of chest pain radiating to the left side of the neck and associated with headache, visual disturbance, generalized weakness mostly affecting the left side, and numbness throughout her body. The symptoms started approximately 5 a.m. on 08/25/19. Initially, she noticed her chest pain that was described as tightness in the chest region. She was having trouble breathing. She was having palpitation. The pain was 9/ 10 in severity. She called her sister, who is a nurse, who advised her to go to the ER for further evaluation. This was followed by gradual onset headache that currently is graded as 6/10 in severity. She has pressure-like sensation on the right side of the head. This is typical for her migraine headaches. This started while she was in the ambulance getting to the hospital. According to the EMS, the patient suddenly was minimally responding, but her eyes were open. She was crying. She was complaining of her body not functioning and working. A code garcía was activated, but then canceled when the patient arrived. I rushed to the code garcía and examined the patient to realize that she was crying and complaining of weakness all over her body. She was lifting her arms without any difficulty. She was resisting with lower extremity strength. After 15 minutes, the patient was stabilized and she was able to follow command and had no objective evidence of any weakness. NIH Stroke Scale was 0. PAST MEDICAL HISTORY: Conversion disorder by Dr. Pereira, Dr. Stokes in 2017, as well as Dr. Benito Castaneda; hypertension; dyslipidemia; diabetes; tobacco use; coronary artery disease, status post stent placement last year. She also has a history of fibromyalgia, depression. 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 MEDICATIONS: 1. Metformin 500 mg p.o. b.i.d. 2. Cyanocobalamin 5000 mcg p.o. daily. 3. Lisinopril 10 mg p.o. daily. 4. Thiamine 250 mg p.o. daily. 5. Brilinta 90 mg p.o. daily. 6. Aspirin 81 mg daily. 7. Potassium 20 mEq. 8. Metoprolol 50 mg p.o. daily. 9. Magnesium 400 mg p.o. daily. 10. Ezetimibe 10 mg p.o. daily. 11. Duloxetine 20 mg p.o. daily. 12. Rosuvastatin 40 mg p.o. daily. ALLERGIES: Latex FAMILY HISTORY: Negative for stroke or seizures. SOCIAL HISTORY: She is a smoker. She smokes approximately 1 pack per week. She does not drink alcohol. She is for the past 5 years. The patient has experienced increase in stressors lately since the coronavirus pandemic. 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 She starts work at 1 a.m. and finishes at 3 to 4 p.m. every day. REVIEW OF SYSTEMS: A 14-point review of systems was obtained and otherwise negative except for what was mentioned in the HPI. The patient denied any recent falls. PHYSICAL EXAM: Vitals: Temperature of 98.3, heart rate of 62, respiratory rate of 17, blood pressure of 136/90. General: Well-nourished, well-developed female, in no acute distress. Head: Atraumatic, normocephalic without any obvious abnormality. Eyes: Conjunctivae/corneas are clear. Neck is supple and symmetrical with no carotid bruits. Cardiovascular: Regular rate and rhythm with normal S1, S2. Respiratory: Clear to auscultation bilaterally. Extremities: Normal range of motion. No cyanosis or edema. Skin: No skin lesions or lacerations. The patient has dry lips as well as oral mucosa. Psych : Affect is flat, slightly depressed mood. She denied any suicidal or homicidal ideation. Neurological Examination: Mental Status: Awake, alert, oriented to person, place, time, general circumstances. Speech and language including repetition and comprehension were assessed and found to be normal. Cranial Nerves: Pupils equal, round, reactive to light. Extraocular muscles intact. Normal sensation of the face. There is no facial asymmetry. Tongue is symmetrical and midline with no atrophy or fasciculation. Motor Examination : Normal bulk throughout. She has 5/5 strength in all upper extremities. She has reduced give way activation of the left and right lower extremities bilaterally. However, with encouragement, she is able to give full effort without any evidence of weakness. Sensation is intact to light touch throughout. Reflexes are 1+ throughout the upper and lower extremities symmetrically. Gait: She was able to stand without any evidence of ataxia. LABORATORY DATA: WBC of 9.7, hemoglobin of 12, hematocrit of 39, platelet count of 263. Carbon dioxide of 19, creatinine is 0.61, BUN/creatinine ratio of 29.5. ASSESSMENT AND RECOMMENDATIONS: Ms. Hayden Lopez is a 54-year-old female with history of conversion disorder, who presents with chest pain associated with subjective generalized weakness, fatigue, paresthesias, and headache. I suspect the patient has complex migraine headache. She has no focal neurological deficits at this time. She is not lateralizing on her neurological examination since presentation. Her episode of not talking/mutism en route associated with left-sided weakness does not correlate with aphasia that would be seen with left hemispheric syndrome. Therefore, I do not suspect she has a stroke or transient ischemic attack. Given her history of conversion disorder, as well as the recent stressors excessive work suggest that she may have underlying exacerbation of her conversion reaction. The patient does also have signs of dehydration with evidence of elevated BUN/ creatinine ratio and therefore I recommend treating for that. Given the NIH Stroke Scale of 0, I do not recommend any further neurological workup. I recommend IV hydration. Consider followup with your primary care doctor and possibly increasing Cymbalta to help with the increase in stressors and possible underlying worsening depression. I advised the patient to come back if she develops any worsening headaches, focal weakness, or new paresthesias. I also recommend a dose of IV Reglan 10 mg x1 and Benadryl 25 mg IV x1 to help with the current nausea and headaches. [id number]/[facility] #: [id number] [facility]
[2019-08-25] MEDS ORDERED: NS 0.9% 1000 ML** 1,000 ML IV SCH (13:00)
[2019-08-25] MEDS ORDERED: Enoxaparin(*) 40 MG/0.4 ML SYR SUBCUT SCH ×2 (13:00→21:00)
--- NOTE | 2019-08-25 14:31 | HP ---
CC: Dr. Roseann Moreland; Dr. Lewis * HISTORY AND PHYSICAL: DATE OF ADMISSION: 08/25/19 PRIMARY CARE PROVIDER: Dr. Roseann Moreland. INSPECTOR WEIGHTS AND MEASURES: Dr. Lewis. ATTENDING PHYSICIAN: Dr. Ortiz * (dictated by SMOOTH Kirkland). CHIEF COMPLAINT: 1. Chest heaviness. 2. Nausea, vomiting. 3. Cough, rhinorrhea, fever. HISTORY OF PRESENT ILLNESS: Ms. Lopez is a 54-year-old female with past medical history of CAD, status post stenting to the circ approximately 1 year ago; hypertension; hyperlipidemia; diabetes; tobacco abuse; obesity; and history of conversion disorder, who presented to the ER today with multiple complaints. She reports chest heaviness for the last 3 to 4 days that is worse today and she describes this as more constant since today. She states that nothing makes it better or worse. She has tried Tylenol only. She reports associated chills and sweats for the last 3 to 4 weeks. When asked to explain more, the patient reports that she had a fever "a couple of weeks ago" with a T- max of 100 to 102. Since that time, she has had chills and sweats. She also has mild dyspnea on exertion, but no shortness of breath at rest. She reports a syncopal episode at work. She also has nausea and vomiting since today. She also reports rhinorrhea. She denies dyspnea at rest or recent travel. 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 The patient does have a history of CAD, status post stenting to the circumflex with reported total occlusion of RCA and 50% occlusion of LAD. She follows with Dr. Lewis. She had her stent placed approximately 1 year ago. Since that time, she has been on ticagrelor and aspirin daily. In the ER, the patient received a full workup. She was noted to be afebrile without tachycardia, tachypnea, hypoxia. Laboratory data shows an unremarkable CBC, a CMP with elevated glucose. Chest x-ray was negative for cardiopulmonary disease. An EKG was obtained and showed a rate of [address] elevation or depression. The patient's troponin was 0.01 x1. The hospitalist team was asked to evaluate the patient for admission. Initially, a code ricky was called when the patient arrived. She reported headache, numbness, and weakness all over. Again, a chuy garcía was called. The patient's NIH Stroke Scale was 0. Dr. Yanez assessed the patient and suspected that the patient was suffering from conversion reaction exacerbation due to her increase in stress at work with increased working hours. He recommended no further followup. PAST MEDICAL HISTORY: 1. CAD, status post stenting to circumflex; RCA with full occlusion, LAD with 50% occlusion. 2. Hypertension. 3. Hyperlipidemia. 4. Diabetes mellitus. 5. Tobacco abuse. 6. Obesity. 7. Conversion disorder. 8. Hemiplegic migraines. 9. Neuropathy. 10. Fibromyalgia. 11. Depression. PAST SURGICAL HISTORY: x1, tubal ligation, left arm ORIF, Keshav fundoplication, cervical ablation. HOME MEDICATIONS: 1. Aspirin 81 mg p.o. daily. 2. Cholecalciferol 1000 units p.o. daily. 3. Cyanocobalamin 5000 mcg p.o. daily. 4. Duloxetine 20 mg p.o. daily. 5. Ezetimibe 10 mg p.o. daily. 6. Lisinopril 10 mg p.o. daily. 7. Magnesium oxide 400 mg p.o. daily. 8. Metformin 500 mg p.o. b.i.d. 9. Metoprolol succinate 50 mg p.o. daily. 10. [place]-3 fatty acids 1000 mg p.o. daily. 11. Potassium chloride 20 mEq p.o. b.i.d. 12. Rosuvastatin 40 mg p.o. daily. 13. Thiamine 250 mg p.o. daily. 14. Ticagrelor 90 mg p.o. b.i.d. DRUG ALLERGIES: LATEX. FAMILY HISTORY: Father had a history of diabetes, CAD, and pancreatic and colon cancer. Sister and paternal grandmother had diabetes. No family history of CVA. Mother had a history of oral/throat cancer. SOCIAL HISTORY: The patient smokes half a pack per day for approximately 25 years. She rarely uses alcohol. She does not use any illicit drugs. 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 She is , with 3 children. She lives with her . In the event that she is unable to make her own medical decisions, she has appointed her , Roosevelt Lopez or her sister, Gertrudis , to be her surrogate decision maker. REVIEW OF SYSTEMS: A 14-point review of systems has been performed and all the pertinent positives and negatives are in the HPI. All other systems are negative. PHYSICAL EXAMINATION GENERAL: Ms. Lopez is a well-developed, well-nourished, obese, middle-aged white female, who is sitting up in bed. She is breathing comfortably on room air. She was initially on 3 L of oxygen saturating at 100%. When this was turned off, her oxygen saturation was 98% to 100% on room air. She does not appear to be in any acute distress. VITAL SIGNS: Temperature 98.3 oral, heart rate 61, respiratory rate 21, oxygen saturation 98% on room air, blood pressure 140/73. HEENT: PERRL. EOMI. Nonicteric sclerae. Hearing is grossly intact. Oral mucous membranes are moist. There are no lesions. The pharynx is clear. Tongue is at midline. Normocephalic, atraumatic. PULMONARY: Symmetrical chest expansion without use of accessory muscles. Clear to auscultation bilaterally without rhonchi, wheeze, or rales. CARDIOVASCULAR: Regular rate and rhythm with S1, S2 present. No murmurs, rubs , clicks, or gallops. There is no JVD. There is no peripheral edema. ABDOMEN: Bowel sounds in all quadrants. Soft, nontender to palpation. MUSCULOSKELETAL: Full range of motion without pain or deformities. NEURO: The patient is awake. She is alert and oriented x3 with cranial nerves grossly intact, although she does report decreased sensation to the left side of the face compared with right. Muscle strength is 5/5 bilaterally in the upper and lower extremities. Barking Machine Feeder strength is equal. DIAGNOSTIC STUDIES/LAB DATA: 1. CBC: WBC 9.7, hemoglobin 12.9, hematocrit 39, MCV 87, platelets 263. 2. Chemistry: Sodium 136, potassium 4, chloride 110, carbon dioxide 19, anion gap 7, BUN 18, creatinine 0.61, glucose 170. Total bili 0.30, AST 14, ALT 18, alk phos 71. Troponin 0.01. 3. EKG: Rate [address] elevation or depression. 4. Chest x-ray, impression: No active cardiopulmonary disease noted. ASSESSMENT AND PLAN: Ms. Lopez is a 54-year-old female with past medical history of coronary artery disease, status post stenting to circumflex; hypertension; hyperlipidemia; diabetes; obesity; tobacco abuse; history of conversion disorder, who presented to the ER today with generalized complaints including chest heaviness, nausea, vomiting, rhinorrhea, fevers, chills/sweats, and cough. She will be admitted for: 1. Chest pain, rule out acute coronary syndrome. The patient reports chest heaviness for the last 3 to 4 days that has worsened today. She reports it is more constant today. So far, her workup has been negative. Troponin is 0.01. EKG shows no ST elevation or depression. The patient will be admitted to the telemetry floor. She does have multiple risk factors including tobacco abuse; obesity; hypertension; hyperlipidemia; diabetes; family history; and history of coronary artery disease, status post stenting to circumflex. She does have known RCA occlusion and 50% LAD occlusion. At this time, she will be admitted and we will continue to trend her troponins. She will have a repeat EKG in the a.m. We will consider pursuing stress testing, although this may need to be done in the outpatient setting after the patient is ruled out for COVID-19. 2. Upper respiratory symptoms. The patient reports upper respiratory symptoms including cough, fever, chills/sweats, rhinorrhea. 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 She likely has a viral upper respiratory illness and should be treated symptomatically. We will order COVID-19 testing to rule out this as the cause of her upper respiratory illness symptoms. 3. Exacerbation of conversion disorder. The patient presented with headache, paresthesias, weakness. A code ricky was initially called, but was then called off. Dr. Yanez saw the patient in consultation and recommended no further workup as his suspicion was exacerbation of conversion reaction due to increase in demand at work. He recommends IV hydration and symptomatic management for headaches and nausea. 4. Coronary artery disease. The patient has a history of coronary artery disease, status post stent to circumflex. She has known 50% LAD occlusion, known full occlusion of RCA. She will continue her home medications, ticagrelor , aspirin. Continue statin. Continue MEGAN and beta-marcie. 5. Hypertension. Continue home medications, lisinopril and metoprolol. 6. Hyperlipidemia. Continue ezetimibe and rosuvastatin. 7. Diabetes mellitus. The patient has a history of diabetes. She will be continued on her home metformin. 8. Tobacco abuse. Low-dose nicotine patch has been offered. 9. DVT prophylaxis: According to DVT Risk Assessment, the patient scores 2, placing her at moderate risk. She has been started on Lovenox. 10. Code status: Full code. TIME SPENT: Approximately 60 minutes was spent on this admission, greater than half that time was spent [id number] with the patient and her obtaining history, performing physical, and reviewing the plan of care. The case has been discussed with my attending, Dr. Ortiz, who is in agreement with the plan of care. SMOOTH NAVARRETE [id number]/[facility] #: [id number] [facility]
[2019-08-25] MEDS ORDERED: Ondansetron INJ* 2 MG/ML VIAL IV PRN (18:00)
[2019-08-25] MEDS: Acetaminophen TAB* 325 MG PO PRN ×2 (18:15→22:18)
[2019-08-25] MEDS: Nicotine PATCH 14 MG/24 HR* PATCH TRANSDERM SCH (18:26)
[2019-08-25] MEDS: metFORMIN* 500 MG TAB PO SCH (20:32)
[2019-08-25] MEDS: Potassium Chlor TAB* 20 MEQ TAB.ER PO SCH (20:32)
[2019-08-25] MEDS: Ticagrelor* 90 MG TAB PO SCH (20:33)
[2019-08-25] MEDS ORDERED: Nicotine Patch Removal NOTE PATCH OFF SCH (21:00)
[2019-08-25 23:17] LABS: Influenza A Molecular Negative (Negative); Influenza B Molecular Negative (Negative)
[2019-08-26 05:32] LABS: HDL Cholesterol 37.1 mg/dL
[2019-08-26] MEDS: Ticagrelor* 90 MG TAB PO SCH (08:15)
[2019-08-26] MEDS: metFORMIN* 500 MG TAB PO SCH (08:16)
[2019-08-26] MEDS: Potassium Chlor TAB* 20 MEQ TAB.ER PO SCH (08:16)
[2019-08-26] MEDS: Nicotine PATCH 14 MG/24 HR* PATCH TRANSDERM SCH (08:19)
[2019-08-26] MEDS ORDERED: DULoxetine DR CAP* 20 MG CAP.DR PO SCH (09:00)
[2019-08-26] MEDS ORDERED: Atorvastatin* 80 MG TAB PO SCH (09:00)
[2019-08-26] MEDS ORDERED: Metoprolol Succinate XL TAB* 50 MG PO SCH (09:00)
[2019-08-26] MEDS ORDERED: Magnesium Oxide TAB* 400 MG PO SCH (09:00)
[2019-08-26] MEDS ORDERED: Aspirin 81 mg CHEW TAB* 81 MG TAB.CHEW PO SCH (09:00)
[2019-08-26] MEDS ORDERED: Thiamine TAB* 100 MG TAB PO SCH (09:00)
[2019-08-26] MEDS ORDERED: Lisinopril TAB* 10 MG PO SCH (09:00)
[2019-08-26] MEDS ORDERED: Ezetimibe TAB* 10 MG PO SCH (09:00)
--- NOTE | 2019-08-26 09:02 | PN ---
Subjective Date of Service: 08/26/19 Interval History: Mr. Lopez reports that she is feeling well today and is eager for discharge to home. She denies chest pain, SOB, nausea or abdominal pain. She is aware that she will need to self-quarantine until her COVID-19 testing has resulted. She is aware to contact the [facility] Department for information as needed (info in discharge paperwork). Objective Active Medications: Acetaminophen (Tylenol Tab*) 650 mg PO Q4H PRN Aspirin (Aspirin 81 Mg Chew Tab*) 81 mg PO DAILY [facility] Atorvastatin Calcium (Lipitor*) 80 mg PO DAILY [facility] Duloxetine HCl (Cymbalta Cap*) 20 mg PO DAILY [facility] Ezetimibe (Zetia Tab*) 10 mg PO DAILY [facility] Enoxaparin Sodium (Lovenox(*)) 40 mg SUBCUT 2100 [facility] Lisinopril (Prinivil Tab*) 10 mg PO DAILY [facility] Magnesium Oxide (Magox 400 Tab*) 400 mg PO DAILY [facility] Metformin HCl (Glucophage*) 500 mg PO BID [facility] Metoprolol Succinate (Toprol Xl Tab*) 50 mg PO DAILY [facility] Nicotine (Nicotine Patch 14 Mg/24 Hr*) 1 patch TRANSDERM DAILY [facility] Ondansetron HCl (Zofran Inj*) 4 mg IV Q6H PRN Pharmacy Profile Note (Nicotine Patch Removal Note*) 1 note PATCH OFF 2100 [facility] Potassium Chloride (Klor Con Er Tab*) 20 meq PO BID [facility] Thiamine HCl (Vitamin B-1 Tab*) 250 mg PO DAILY [facility] Ticagrelor (Brilinta*) 90 mg PO BID [facility] Vital Signs: Temp Pulse Resp BP Pulse Ox 98.2 F 72 17 120/64 97 08/26/19 07:49 08/26/19 07:49 08/26/19 07:49 08/26/19 07:49 08/26/19 07:49 Oxygen Devices in Use Now: None Appearance: Female lying in bed in NAD Eyes: No Scleral Icterus Ears/Nose/Mouth/Throat: Mucous Membranes Moist Neck: Trachea Midline Respiratory: Symmetrical Chest Expansion and Respiratory Effort, Clear to Auscultation Cardiovascular: NL Sounds; No Murmurs; No JVD, No Edema Abdominal: NL Sounds; No Tenderness; No Distention Extremities: No Edema Skin: No Rash or Ulcers Neurological: Alert and Oriented x 3, NL Muscle Strength and Tone Nutrition: Taking PO's Result Diagrams: 08/25/19 09:35 08/25/19 09:35 Assess/Plan/Problems-Billing Assessment: Ms. Lopez is s 54 yo F with a hx of CAD, HTN, HLD, DM, tobacco abuse, conversion disorder who was admitted on 08/25/19 with concern for URI, chest heaviness, headache, paresthesias and weakness. - Patient Problems (1) Chest pain Comment: - Trop negative x 3 - No evidence of ischemia - Continue aspirin, brilinta and atorvastatin - Recommend outpatient follow up with cardiology, Dr Hurley (2) Hypertension Comment: - BP well controlled - Continue lisinopril and metoprolol (3) URI (upper respiratory infection) Comment: - Covid-19 being ruled out, awaiting results - Patient will be instructed to self-quarantine until she receives results from the health department (4) Diabetes mellitus Comment: - Continue metformin (5) Smoker Comment: - Smoking cessation counseling offered (6) Depression Comment: - Continue duloxetine (7) DVT prophylaxis Comment: - Lovenox (8) Full code status Comment: Status and Disposition: OBV. Discharge to home.
--- NOTE | 2019-08-26 11:15 | DS ---
CC: Dr. Moreland * [facility] MEDICINE DISCHARGE SUMMARY: DATE OF ADMISSION: 08/25/19 DATE OF DISCHARGE: 08/26/19 PRIMARY CARE PROVIDER: Dr. Moreland. ATTENDING PHYSICIAN: Dr. Kelsi Ortiz * (dictation provided by Mayra Wise NP ) PRIMARY DIAGNOSES: 1. Chest pain. 2. Upper respiratory infection. 3. Conversion disorder. SECONDARY DIAGNOSES: 1. Coronary artery disease, status post stenting to circumflex; RCA with full occlusion, LAD with 50% occlusion. 2. Hypertension. 3. Hyperlipidemia. 4. Type 2 diabetes, non-insulin dependent. 5. Tobacco abuse. 6. Obesity. 7. Hemiplegic migraines. 8. Neuropathy. 9. Fibromyalgia. 10. Depression. MEDICATIONS AT THE TIME OF DISCHARGE: 1. Brilinta 90 mg p.o. b.i.d. 2. Thiamine 250 mg p.o. daily. 3. Rosuvastatin 40 mg p.o. daily. 4. Potassium chloride 20 mEq p.o. b.i.d. 5. [place]-3 fatty acids 1000 mg p.o. daily. 6. Metformin 500 mg p.o. b.i.d. 7. Metoprolol succinate 50 mg p.o. daily. 8. Magnesium oxide 400 mg p.o. daily. 9. Lisinopril 10 mg p.o. daily. 10. Zetia 10 mg p.o. daily. 11. Duloxetine 20 mg p.o. daily. 12. Cyanocobalamin 5000 mcg p.o. daily. 13. Cholecalciferol 1000 units p.o. daily. 14. Aspirin 81 mg p.o. daily. HOSPITAL COURSE: Ms. Lopez is a 54-year-old female with past medical history as outlined above, who presented to hospital on 08/25/19 with concern for chest heaviness, nausea, vomiting, cough, rhinorrhea and fever. Please see the dictated H and P from SMOOTH Kirkland for complete details. In brief, the patient states she had chills and sweats for about 3 to 4 weeks and then had been having chest heaviness for about 3 to 4 days. In the emergency room, she had labs which showed no leukocytosis, no anemia. Her BUN and creatinine were normal. I will note that her hemoglobin A1c was 9.0. She had 3 troponins which was 0.01. Chest x- ray showed no evidence of infection. EKG showed no evidence of ischemia. Ms. Lopez was admitted to hospital, because of her upper respiratory symptoms she was placed on a rule out for COVID-19. That testing is still pending. The patient was ruled out for acute coronary syndrome with 3 troponins, all of which were negative and she has had no evidence of ischemia on EKG. At the time of arrival to the ED, the patient was complaining of paraesthesias and weakness. She was seen in consultation by the neurologist who stated that he felt that the patient was having complex migraine headache. She had no focal neurological deficits. He suspected that her symptoms are related to recent stressors and exacerbation of conversion disorder. Ms. Lopez is medically stable for discharge to home. She will be following up with Dr. Lewis regarding this episode of chest discomfort that has a negative rule out for acute coronary syndrome. She will be following with the [facility] and will self quarantine until results of COVID-19 are negative. DISPOSITION: Home. DIET: Consistent carbohydrate, low fat. ACTIVITY: As tolerated. FOLLOWUP PLANS: 1. Please follow up with [facility] regarding testing for COVID-19. In the meantime, the patient is self quarantining as per instructions and the discharge paperwork. 2. Please follow up with Dr. Lewis regarding this episode of chest pain and history of coronary artery disease, diabetes, smoking. 3. Please follow up with your primary care physician, Dr. Moreland regarding your ongoing management of diabetes as her hemoglobin A1c was 9. TIME SPENT: Approximately 60 minutes was spent on the discharge of this patient , more than half that time was spent with the patient at the bedside reviewing the events leading up to this hospitalization, performing the physical examination, and reviewing my plan of care. MAYRA WISE NP [id number]/[facility] #: [id number] KEILY
[2019-08-26 12:29] VITALS: BP 134/68
== END 2019-08-26 12:20 | disposition home or self-care (01) ==
LOC: ED 09:02 → MED 12:49
PROVIDERS: ADMIT Hospitalist; ATTEND Hospitalist
DX: R07.9 Chest pain, unspecified (principal); J06.9 Acute upper respiratory infection, unspecified; F44.9 Dissociative and conversion disorder, unspecified; I25.10 Atherosclerotic heart disease of native coronary artery without angina pectoris; Z95.5 Presence of coronary angioplasty implant and graft; I10 Essential (primary) hypertension; E78.5 Hyperlipidemia, unspecified; E11.9 Type 2 diabetes mellitus without complications; E78.00 Pure hypercholesterolemia, unspecified; F17.210 Nicotine dependence, cigarettes, uncomplicated; E66.9 Obesity, unspecified; G43.409 Hemiplegic migraine, not intractable, without status migrainosus; G62.9 Polyneuropathy, unspecified; M79.7 Fibromyalgia; Z79.84 Long term (current) use of oral hypoglycemic drugs; F32.9 Major depressive disorder, single episode, unspecified; Z79.899 Other long term (current) drug therapy; Z79.82 Long term (current) use of aspirin; Z20.828 Contact with and (suspected) exposure to other viral communicable diseases
CPT/HCPCS: 36415; 71046; 80053; 80061; 83036; 84484; 85025; 93005; 96372; 96374; 99285; A9270-GY; G0378; J1650; J2405; U0002